=== PATIENT | male | born 1985 | race Caucasian/White ===

== ENCOUNTER 2017-04-28 06:43 | Emergency (ER) | payer MEDICAID, OTHER ==
[2017-04-28 08:21] LABS: Hematocrit 40 % (42-52); Hemoglobin 13.6 g/dl (14.0-18.0); Mean Corpuscular HGB Conc 34 g/dl (31-36); Mean Corpuscular Hemoglobin 28 pg (27-31); Mean Corpuscular Volume 84 fL (80-94); Mean Platelet Volume 8 um3 (7.4-10.4); Red Blood Count 4.82 10^6/ul (4.0-5.4); Red Cell Distribution Width 14 % (10.5-15); White Blood Count 11.2 10^3/ul (3.5-10.8)
[2017-04-28 08:35] VITALS: BP 154/85
[2017-04-28 08:40] LABS: ALT 66 U/L (7-52); AST 26 U/L (13-39); Albumin 3.9 g/dL (3.2-5.2); Alkaline Phosphatase 86 U/L (34-104); Anion Gap 5 mmol/L (2-11); BUN/Creatinine Ratio 18.9 (8-20); Blood Urea Nitrogen 20 mg/dL (6-24); CO2 Carbon Dioxide 26 mmol/L (22-32); Calcium 8.9 mg/dL (8.6-10.3); Chloride 108 mmol/L (101-111); EGFR African American 105.5 (>60); Globulin 3.2 g/dL (2-4); Glucose 160 mg/dL (70-100); Potassium 3.9 mmol/L (3.5-5.0); Sodium 139 mmol/L (133-145); Total Protein 7.1 g/dL (6.4-8.9)
[2017-04-28 08:51] LABS: Alcohol < 10 mg/dL (<10)
--- NOTE | 2017-04-29 16:12 | ED ---
Pao Dobson Edward, scribed for Shane Cowan MD on 04/28/17 at 0712 . Substance Abuse/Use - HPI Summary HPI Summary: 31 y/o male [place] c/o sudden onset heroin overdose at around 07:00 this morning. The pt turned blue, stopped breathing and had LOC. Pt was given Narcan at home which alleviated his symptoms. Pt attributes this to possible over-exhaustion and dehydration. - History Of Current Complaint Chief Complaint: EDSubstanceAbuse Stated Complaint: OVERDOSE Hx Obtained From: Patient Ingestion History: Type/Name Of Drug - Heroin Alleviating Factor(s): Other - Narcan Associated Signs And Symptoms: Intentional Ingestion, Other: - LOC, skin turned blue - Allergies/Home Medications Allergies/Adverse Reactions: Allergies Allergy/AdvReac Type Severity Reaction Status Date / Time Codeine Allergy Hives Verified 04/28/17 06:47 PMH/Surg Hx/FS Hx/Imm Hx Previously Healthy: No Endocrine/Hematology History: Denies: Hx Anticoagulant Therapy, Hx Diabetes, Hx Thyroid Disease Cardiovascular History: Reports: Hx Congestive Heart Failure, Hx Hypertension, Other Cardiovascular Problems/Disorders - CARDIOMYOPATHY Denies: Hx Pacemaker/ICD Respiratory History: Reports: Hx Asthma - [employer] Denies: Hx Chronic Obstructive Pulmonary Disease (COPD) GI History: Denies: Hx Ulcer History: Denies: Hx Dialysis, Hx Renal Disease Neurological History: Denies: Hx Dementia, Hx Seizures Psychiatric History: Denies: Hx Substance Abuse - Immunization History Date of Tetanus Vaccine: utd Date of Influenza Vaccine: none Infectious Disease History: No Infectious Disease History: Denies: Hx Clostridium Difficile, Hx Hepatitis, Hx Human Immunodeficiency Virus (HIV), Hx of Known/Suspected MRSA, Hx Shingles, Hx Tuberculosis, Hx Known/ Suspected VRE, Hx Known/Suspected VRSA, History Other Infectious Disease, Traveled Outside the [place] in Last 30 Days - Family History Known Family History: Positive: Hypertension Negative: Cardiac Disease, Diabetes - Social History Alcohol Use: None Substance Use Type: Reports: Heroin, Marijuana Substance Use Comment - Amount & Last Used: marijuana daily, heroin rarely Hx Tobacco Use: Yes Smoking Status (MU): Light Every Day Tobacco Smoker Type: Cigarettes Amount Used/How Often: 1/4 PPD Length of Time of Smoking/Using Tobacco: 8+ years Have You Smoked in the Last Year: Yes Review of Systems Constitutional: Negative Eyes: Negative ENT: Negative Cardiovascular: Negative Respiratory: Negative Gastrointestinal: Negative Genitourinary: Negative Musculoskeletal: Negative Skin: Negative Neurological: Negative Psychological: Normal All Other Systems Reviewed And Are Negative: Yes Physical Exam - Summary Physical Exam Summary: VITAL SIGNS: Reviewed. GENERAL: ~Patient is a well-developed and nourished male who is lying comfortable in the stretcher. ~Patient is not in any acute respiratory distress. HEAD AND FACE: No signs of trauma. ~No ecchymosis, hematomas or skull depressions. No sinus tenderness. EYES: PERRLA, EOMI x 2, No injected conjunctiva, no nystagmus. EARS: Hearing grossly intact. Ear canals and tympanic membranes are within normal limits. MOUTH: Oropharynx within normal limits. NECK: Supple, trachea is midline, no adenopathy, no JVD, no carotid bruit, no c- spine tenderness, neck with full ROM. CHEST: Symmetric, no tenderness at palpation LUNGS: Clear to auscultation bilaterally. No wheezing or crackles. CVS: Regular rate and rhythm, S1 and S2 present, no murmurs or gallops appreciated. ABDOMEN: Soft, non-tender. No signs of distention. No rebound no guarding, and no masses palpated. Bowel sounds are normal. EXTREMITIES: FROM in all major joints, no edema, no cyanosis or clubbing. NEURO: Alert and oriented x 3. No acute neurological deficits. Speech is normal and follows commands. SKIN: Dry and warm Triage Information Reviewed: Yes Vital Signs On Initial Exam: Initial Vitals Temp Pulse Resp BP Pulse Ox 97.3 F 69 18 154/112 98 04/28/17 06:45 04/28/17 06:45 04/28/17 06:45 04/28/17 06:45 04/28/17 06:45 Vital Signs Reviewed: Yes - [place] Coma Scale Coma Scale Total: 15 Diagnostics - Vital Signs Vital Signs Temp Pulse Resp BP Pulse Ox 04/28/17 06:45 97.3 F 69 18 154/112 98 - Laboratory Lab Results: Lab Results 04/28/17 04/28/17 Range/Units 08:03 08:03 WBC 11.2 H (3.5-10.8) 10^3/ul RBC 4.82 (4.0-5.4) 10^6/ul Hgb 13.6 L (14.0-18.0) g/dl Hct 40 L (42-52) % MCV 84 (80-94) fL MCH 28 (27-31) pg MCHC 34 (31-36) g/dl RDW 14 (10.5-15) % Plt Count 304 (150-450) 10^3/ul MPV 8 (7.4-10.4) um3 Neut % (Auto) 74.4 (38-83) % Lymph % (Auto) 18.2 L (25-47) % Emery % (Auto) 6.2 (1-9) % Eos % (Auto) 0.9 (0-6) % Baso % (Auto) 0.3 (0-2) % Absolute Neuts (auto) 8.3 H (1.5-7.7) 10^3/ul Absolute Lymphs (auto) 2.0 (1.0-4.8) 10^3/ul Absolute Monos (auto) 0.7 (0-0.8) 10^3/ul Absolute Eos (auto) 0.1 (0-0.6) 10^3/ul Absolute Basos (auto) 0 (0-0.2) 10^3/ul Absolute Nucleated RBC 0.01 10^3/ul Nucleated RBC % 0 Sodium 139 (133-145) mmol/L Potassium 3.9 (3.5-5.0) mmol/L Chloride 108 (101-111) mmol/L Carbon Dioxide 26 (22-32) mmol/L Anion Gap 5 (2-11) mmol/L BUN 20 (6-24) mg/dL Creatinine 1.06 (0.67-1.17) mg/dL Est GFR ( Amer) 105.5 (>60) Est GFR (Non-Af Amer) 82.0 (>60) BUN/Creatinine Ratio 18.9 (8-20) Glucose 160 H (70-100) mg/dL Calcium 8.9 (8.6-10.3) mg/dL Total Bilirubin 0.50 (0.2-1.0) mg/dL AST 26 (13-39) U/L ALT 66 H (7-52) U/L Alkaline Phosphatase 86 (34-104) U/L Total Protein 7.1 (6.4-8.9) g/dL Albumin 3.9 (3.2-5.2) g/dL Globulin 3.2 (2-4) g/dL Albumin/Globulin Ratio 1.2 (1-3) Serum Alcohol < 10 (<10) mg/dL Result Diagrams: 04/28/17 08:03 04/28/17 08:03 Lab Statement: Any lab studies that have been ordered have been reviewed, and results considered in the medical decision making process. - EKG 1 EKG Rhythm: Sinus Rhythm - @ 63 BPM EKG Interpretation: 07:35 - T wave inversion in I, aVL, V5-V6. Similar to Course/Dx - Course Assessment/Plan: 31 y/o male BIBA c/o sudden onset heroin overdose at around 07: 00 this morning. The pt turned blue, stopped breathing and had LOC. Pt was given Narcan at home which alleviated his symptoms. Pt attributes this to possible over-exhaustion and dehydration. 07:35 - SR @ 63 BPM. T wave inversion in I, aVL, V5-V6. Similar to 03/08/16. Test results w/o siginificant abnormalities. EKG shows NSR w/o ST elevations. Pt is A&Ox3. Pt is hemodynamically stable. Pt was observed for a couple of hours, then d/c home with f/u with PCP. Final diagnosis is overdose of heroin. I discussed all the findings and test results with the patient. Patient was instructed to return to the emergency room immediately if any of the symptoms return or worsens. Plan of care was discussed with the patient and understands and agrees. All questions were answered at patient satisfaction. There were no further complaints or concerns. Lung exam before discharge: CTA B/L. Good air exchange. No wheezing or crackles heard. CVS: S1 and S2 present. No murmurs appreciated. Patient is alert and oriented x 3. Patient is hemodynamically stable. Patient will be discharged home with follow up PCP in the next 2-3 days - Diagnoses Differential Diagnosis/HQI/PQRI: Positive: Anxiety, Drug Abuse Provider Diagnoses: Overdose of heroin Discharge - Discharge Plan Condition: Stable Disposition: HOME Patient Education Materials: Adult Overdose (ED), Narcotic Abuse (ED) Referrals: [facility] [Outside] - 3 Days (PLEASE F/U IN 2-3 DAYS) The documentation as recorded by the Pao hayden Edward accurately reflects the service I personally performed and the decisions made by me, Shane Cowan MD.
== END 2017-04-28 09:04 | disposition home or self-care (01) ==
LOC: ED 06:43
DX: T40.1X1A Poisoning by heroin, accidental (unintentional), initial encounter (principal); Y92.009 Unspecified place in unspecified non-institutional (private) residence as the place of occurrence of the external cause; I50.9 Heart failure, unspecified; I10 Essential (primary) hypertension; I42.9 Cardiomyopathy, unspecified; J45.909 Unspecified asthma, uncomplicated; Z88.5 Allergy status to narcotic agent; F12.90 Cannabis use, unspecified, uncomplicated; F17.210 Nicotine dependence, cigarettes, uncomplicated
CPT/HCPCS: 36415; 80053; 80320; 85025; 93005; 99282; G0480

== ENCOUNTER 2017-05-08 20:58 | Emergency (ER) | payer OTHER ==
[2017-05-08] MEDS ORDERED: Naloxone* 0.4 MG/ML 1 ML VIAL IM ONE (22:12)
[2017-05-08] MEDS ORDERED: Naloxone* 0.4 MG/ML 10 ML VIAL ONE ×2 (22:26→23:00)
--- NOTE | 2017-05-08 23:24 | ED ---
Rosangela Dobson Alfonso, scribed for Beatriz Lim MD on 05/08/17 at 2310 . Progress - Progress Note Progress Note: This patient was signed out from Dr. Moffett at shift change. Reevaluation at 2322: Patient is sleeping. Vital signs: HR 71, sat 97, BP 107/64 - no changes to current management No new orders at this time. Reevaluation at 0143: Pt continues to slep sat 97% BP 136/74 HR 78 Reevaluation at 0443: He is awake and talking. He reports a slight headache. Otherwise, he has no complains or needs. Will ambulate, po and discharge Re-Evaluation - Re-Evaluation First Eval Re-Evaluation Time: 22:41 Change: Improved Comment: Patient more awake after Narcan 2mg IM. He is hollering and moving in the stretcher. Course/Dx - Diagnoses Provider Diagnoses: Heroin overdose The documentation as recorded by the Rosangela hayden Alfonso accurately reflects the service I personally performed and the decisions made by me, Beatriz Lim MD.
--- NOTE | 2017-05-09 00:53 | ED ---
Rosangela Dobson Alfonso, scribed for Tiffanie Moffett MD on 05/08/17 at 2215 . Substance Abuse/Use - HPI Summary HPI Summary: This patient is a 31 year old M [facility]IBA with police 2209 to [facility] [place] a possible heroin overdose since earlier today. He reports injecting 4 units of drugs into his LUE. He was administered 0.4mg nasal narcan [employer] by [employer]. The patient rates the pain 0/10 in severity. Symptoms alleviated by nothing. Patient reports chills. Patient denies SI and HI. Tobacco abuse disorder. - History Of Current Complaint Chief Complaint: EDOverdose Stated Complaint: OVERDOSE Time Seen by Provider: 05/08/17 22:03 Hx Obtained From: Patient Ingestion History: Type/Name Of Drug - heroin, Amount Ingested - "4 units" Overdose Characteristics: IV Timing Of Abuse: Binge Use Severity Initially: Severe Severity Currently: Moderate Character: Stuporous Aggravating Factor(s): Nothing Alleviating Factor(s): Nothing Associated Signs And Symptoms: Other: - chills. Patient denies SI and HI. Sleepy , rouses to voice and tactile stimulation. Answers questions. Related Hx: Drug/Alcohol Last Used @ - today - Allergies/Home Medications Allergies/Adverse Reactions: Allergies Allergy/AdvReac Type Severity Reaction Status Date / Time Codeine Allergy Hives Verified 04/28/17 06:47 PMH/Surg Hx/FS Hx/Imm Hx Endocrine/Hematology History: Denies: Hx Anticoagulant Therapy, Hx Diabetes, Hx Thyroid Disease Cardiovascular History: Reports: Hx Congestive Heart Failure, Hx Hypertension, Other Cardiovascular Problems/Disorders - CARDIOMYOPATHY Denies: Hx Pacemaker/ICD Respiratory History: Reports: Hx Asthma Denies: Hx Chronic Obstructive Pulmonary Disease (COPD) GI History: Denies: Hx Ulcer History: Denies: Hx Dialysis, Hx Renal Disease Neurological History: Denies: Hx Dementia, Hx Seizures Psychiatric History: Denies: Hx Substance Abuse - Surgical History Surgery Procedure, Year, and Place: no surg hx - Immunization History Date of Tetanus Vaccine: utd Date of Influenza Vaccine: none Infectious Disease History: No Infectious Disease History: Denies: Hx Clostridium Difficile, Hx Hepatitis, Hx Human Immunodeficiency Virus (HIV), Hx of Known/Suspected MRSA, Hx Shingles, Hx Tuberculosis, Hx Known/ Suspected VRE, Hx Known/Suspected VRSA, History Other Infectious Disease, Traveled Outside the in Last 30 Days - Family History Known Family History: Positive: Hypertension Negative: Cardiac Disease, Diabetes - Social History Alcohol Use: None Substance Use Type: Reports: Heroin, Marijuana Substance Use Comment - Amount & Last Used: marijuana daily, heroin rarely Hx Tobacco Use: Yes Smoking Status (MU): Light Every Day Tobacco Smoker Type: Cigarettes Amount Used/How Often: 1/4 PPD Length of Time of Smoking/Using Tobacco: 8+ years Have You Smoked in the Last Year: Yes Review of Systems Positive: Chills Neurological: Other - drowsy Positive: Other - Possible heroin overdose; negative SI and HI All Other Systems Reviewed And Are Negative: Yes Physical Exam Triage Information Reviewed: Yes Vital Signs On Initial Exam: Initial Vitals Temp Pulse Resp BP Pulse Ox 98.5 F 90 18 173/82 98 05/08/17 21:12 05/08/17 21:12 05/08/17 21:12 05/08/17 21:12 05/08/17 21:12 Vital Signs Reviewed: Yes Appearance: Positive: No Pain Distress, Well-Nourished, Ill-Appearing Skin: Positive: Warm, Skin Color Reflects Adequate Perfusion, Diaphoretic Head/Face: Positive: Normal Head/Face Inspection. Negative: Cephalohematoma Eyes: Positive: EOMI, KOKO, Conjunctiva Clear, Other: - Pterygium on left eye. 4mm pupils. ENT: Positive: Hearing grossly normal, Other - Dry blood under right nare. Abraded nasal mucosa. Left nostril clear. No bleeding site identified in right nostril. Neck: Positive: Supple, Nontender Respiratory/Lung Sounds: Positive: Clear to Auscultation, Breath Sounds Present , Other - No respiratory distress Cardiovascular: Positive: RRR, Pulses are Symmetrical in both Upper and Lower Extremities, Other - Brisk capillary refill. Negative: Murmur Abdomen Description: Positive: Nontender, Soft Bowel Sounds: Positive: Present Musculoskeletal: Positive: Strength/ROM Intact Neurological: Positive: Sensory/Motor Intact, Facial Symmetry, Speech Normal Psychiatric: Positive: Other - Lethargic - [place] Coma Scale Best Eye Response: 3 - To Speech Best Motor Response: 6 - Obeys Commands Best Verbal Response: 5 - Oriented Coma Scale Total: 15 Diagnostics - Vital Signs Vital Signs Temp Pulse Resp BP Pulse Ox 05/08/17 21:12 98.5 F 90 18 173/82 98 - Laboratory Lab Statement: Any lab studies that have been ordered have been reviewed, and results considered in the medical decision making process. Re-Evaluation - Re-Evaluation First Eval Re-Evaluation Time: 22:41 Change: Improved Comment: Patient more awake after Narcan 2mg IM. He is hollering and moving in the stretcher. Course/Dx - Course Assessment/Plan: This patient is a 31 year old M BIBA with police 2209 to [facility] [place]/p a possible heroin overdose since earlier today. He reports injecting 4 units of drugs into his LUE. He was administered 0.4mg nasal narcan [employer] by [employer]. The patient rates the pain 0/10 in severity. Symptoms alleviated by nothing. Patient reports chills. Patient denies SI and HI. Tobacco abuse disorder. In the ED course the patient was given Narcan 2mg IM. Patient will be signed out a shift change to Dr. Lim. - Diagnoses Differential Diagnosis/HQI/PQRI: Positive: Alcohol Abuse, Drug Abuse Provider Diagnoses: Heroin overdose - Critical Care Time Critical Care Time: 30-74 min - 30 minutes Discharge - Discharge Plan Condition: Stable Disposition: OTHER Discharge Disposition Comment: Patient is signed out to Dr. Lim at shift change Referrals: No Primary Care Phys,NOPCP [Primary Care Provider] - The documentation as recorded by the Rosangela hayden Alfonso accurately reflects the service I personally performed and the decisions made by me, Tiffanie Moffett MD.
[2017-05-09] MEDS ORDERED: Acetaminophen TAB* 325 MG PO ONE (04:44)
[2017-05-09 05:15] VITALS: BP 152/94
== END 2017-05-09 05:15 | disposition home or self-care (01) ==
LOC: ED 20:58
DX: T40.1X1A Poisoning by heroin, accidental (unintentional), initial encounter (principal); Y92.9 Unspecified place or not applicable; F17.210 Nicotine dependence, cigarettes, uncomplicated
CPT/HCPCS: 96372; 99284; A9270-GY; J2310

== ENCOUNTER 2017-09-10 23:14 | Emergency (ER) | payer OTHER ==
--- NOTE | 2017-09-11 02:03 | ED ---
Skin Complaint - HPI Summary HPI Summary: Patient presents with "spider bite" over his right antecubital fossa. He reports this started as a small red dot 2 days ago and has more than doubled in size since. The area is swollen, red, painful and warm to touch - darkest red over AC fossa and fruit and vegetable classer red expanding beyond. Pain w/ flexing elbow - feels tight here. He told his partner earlier yesterday that his hand was cold however this is improved since. Denies any numbness tingling or weakness and no tenderness or pain in his armpit area. Admits to mild chills today however no felipe fever nausea vomiting sweats or diarrhea. 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 Believes that he contracted this infection from a bug bite at the hotel he said currently. Imms are up-to-date. No known history of MRSA. - History of Current Complaint Chief Complaint: EDRashSkinAbscess Time Seen by Provider: 09/11/17 01:07 Stated Complaint: POSS SPIDER BITE Hx Obtained From: Patient, Family/Rehabilitation Counselor - female partner Pain Intensity: 6 - Allergy/Home Medications Allergies/Adverse Reactions: Allergies Allergy/AdvReac Type Severity Reaction Status Date / Time MS Codeine [Codeine] Allergy Hives Verified 04/28/17 06:47 PMH/Surg Hx/FS Hx/Imm Hx Previously Healthy: Yes Endocrine/Hematology History: Denies: Hx Anticoagulant Therapy, Hx Diabetes, Hx Thyroid Disease Cardiovascular History: Reports: Hx Congestive Heart Failure, Hx Hypertension, Other Cardiovascular Problems/Disorders - CARDIOMYOPATHY Denies: Hx Pacemaker/ICD, Hx Valvular Heart Disease Respiratory History: Reports: Hx Asthma Denies: Hx Chronic Obstructive Pulmonary Disease (COPD) GI History: Denies: Hx Ulcer History: Denies: Hx Dialysis, Hx Renal Disease Neurological History: Denies: Hx Dementia, Hx Seizures Psychiatric History: Reports: Hx Substance Abuse - h/o heroine use - Surgical History Surgery Procedure, Year, and Place: no surg hx - Immunization History Date of Tetanus Vaccine: utd Date of Influenza Vaccine: none Infectious Disease History: No Infectious Disease History: Denies: Hx Clostridium Difficile, Hx Hepatitis, Hx Human Immunodeficiency Virus (HIV), Hx of Known/Suspected MRSA, Hx Shingles, Hx Tuberculosis, Hx Known/ Suspected VRE, Hx Known/Suspected VRSA, History Other Infectious Disease, Traveled Outside the [place] in Last 30 Days - Family History Known Family History: Positive: Hypertension Negative: Cardiac Disease, Diabetes - Social History Lives: Dormitory/Roommates - "mission housing", couch surfing Alcohol Use: None Hx Substance Use: Yes Substance Use Type: Reports: Heroin, Marijuana Substance Use Comment - Amount & Last Used: stated that last heroin was 7 months ago Hx Tobacco Use: Yes Smoking Status (MU): Light Every Day Tobacco Smoker Type: Cigarettes Amount Used/How Often: 1/4 PPD Length of Time of Smoking/Using Tobacco: 8+ years Have You Smoked in the Last Year: Yes Review of Systems Positive: Chills. Negative: Fever Eyes: Negative ENT: Negative Cardiovascular: Negative Respiratory: Negative Gastrointestinal: Negative Positive: no symptoms reported Positive: Myalgia, Decreased ROM, Edema Positive: Rash Neurological: Negative Psychological: Normal All Other Systems Reviewed And Are Negative: Yes Physical Exam Triage Information Reviewed: Yes Vital Signs On Initial Exam: Initial Vitals Temp Pulse Resp BP Pulse Ox 98.3 F 85 18 187/119 99 09/10/17 23:16 09/10/17 23:16 09/10/17 23:16 09/10/17 23:16 09/10/17 23:16 Vital Signs Reviewed: Yes Appearance: Positive: Well-Appearing, No Pain Distress - at rest - pain w/ flexing Rt elbow Skin: Positive: Warm, Skin Color Reflects Adequate Perfusion, Dry - area of indurated erythema over Rt AC fossa about 5 cm - peripheral and fruit and vegetable classer erythema expanding beyond here - no streaking Head/Face: Positive: Normal Head/Face Inspection Eyes: Positive: Normal, EOMI ENT: Positive: Hearing grossly normal Respiratory/Lung Sounds: Positive: Breath Sounds Present Cardiovascular: Positive: Normal, RRR, Pulses are Symmetrical in both Upper and Lower Extremities - no edema distally to AC fossa rash on Rt Musculoskeletal: Positive: Limited @ - Rt elbow flexion limited d/t pain/ swelling; no passive ROM pain Neurological: Positive: Normal, Sensory/Motor Intact, Alert, Oriented to Person Place, Time, CN Intact II-III Psychiatric: Positive: Normal Procedures - Procedure Summary Procedure Summary: Initially performed needle aspiration - withdrew 0.25mL purulent drainage. Converted to I&D - copious seropurulent drainage expressed from 0.25cm opening - pt reports relief and improved ROM elbow s/p procedure - sterile gauze packing placed (0.5cm) then dressed w/ gauze and EL wrap - hemodynamically stable. Pt tolerated well. - Incision and Drainage Site: Rt AC fossa Anesthesia: Local, Lidocaine Instrument(s): Scalpel - #11 Packing: Gauze Diagnostics - Vital Signs Vital Signs Temp Pulse Resp BP Pulse Ox 09/10/17 23:16 98.3 F 85 18 187/119 99 - Laboratory Result Diagrams: 09/11/17 01:59 09/11/17 01:59 Lab Statement: Any lab studies that have been ordered have been reviewed, and results considered in the medical decision making process. Re-Evaluation - Re-Evaluation First Eval Change: Improved Course/Dx - Diagnoses Provider Diagnoses: Abscess of right arm Discharge - Discharge Plan Condition: Stable Disposition: HOME Prescriptions: Clindamycin HCl [Clindamycin 150 MG CAP*] 300 mg PO TID #30 cap Ibuprofen TAB* [Motrin TAB* 800 MG] 800 mg PO Q8HR PRN #20 tab PRN Reason: Pain Patient Education Materials: Abscess (ED), Incision and Drainage (ED) Referrals: Levi Boss MD [Primary Care Provider] - Additional Instructions: Rest, elevate and apply heat compress to encourage drainage. You may change your dressing daily - simply remove gauze and apply fresh gauze. Follow-up with a medical provider tomorrow for wound check and packing removal. Call in the morning to schedule an appointment. If your dressing becomes saturated with blood in the meantime, remove your dressing, elevate your arm and apply direct pressure for 20 minutes and reassess the wound. If it continues to bleed and saturate your dressing with blood, go to an urgent care or return to the emergency department. If you develop fevers, chills, nausea, vomiting, achiness, or headache return to the emergency department. Otherwise you may take ibuprofen for pain as directed and complete your course of antibiotic. Take probiotics in between doses to prevent diarrhea. *A wound culture was taken today. You receive a phone call in 2 days if the antibiotic you are on his inappropriate and a change will be made at that time.
[2017-09-11 02:23] LABS: ABS Basophils 0 10^3/ul (0-0.2); ABS Eosinophils 0.2 10^3/ul (0-0.6); ABS Lymphocytes 2.7 10^3/ul (1.0-4.8); ABS Monocytes 0.8 10^3/ul (0-0.8); ABS Neutrophils 3.5 10^3/ul (1.5-7.7); ABS Nucleated RBC 0 10^3/ul; Eosinophil % 2.3 % (0-6); Hematocrit 40 % (42-52); Hemoglobin 13.9 g/dl (14.0-18.0); Lymphocyte % 37.7 % (25-47); Mean Corpuscular HGB Conc 35 g/dl (31-36); Mean Corpuscular Hemoglobin 29 pg (27-31); Mean Corpuscular Volume 83 fL (80-94); Mean Platelet Volume 8 um3 (7.4-10.4); Nucleated Red Blood Cells % 0; Platelet Count 298 10^3/ul (150-450); Red Blood Count 4.84 10^6/ul (4.0-5.4); Red Cell Distribution Width 13 % (10.5-15); White Blood Count 7.2 10^3/ul (3.5-10.8)
[2017-09-11] MEDS ORDERED: Ketorolac INJ* 60 MG/2 ML VIAL IM ONE (02:28)
[2017-09-11 02:32] LABS: EGFR Non-African American 116.1 (>60)
[2017-09-11] MEDS ORDERED: Clindamycin CAP* 150 MG PO ONE (02:52)
[2017-09-11 03:41] VITALS: BP 179/115
== END 2017-09-11 03:39 | disposition home or self-care (01) ==
LOC: ED 23:14
DX: L02.413 Cutaneous abscess of right upper limb (principal); R68.83 Chills (without fever); I50.9 Heart failure, unspecified; I11.0 Hypertensive heart disease with heart failure; Z88.5 Allergy status to narcotic agent; J45.909 Unspecified asthma, uncomplicated; F11.11 Opioid abuse, in remission; F12.90 Cannabis use, unspecified, uncomplicated; F17.210 Nicotine dependence, cigarettes, uncomplicated
CPT/HCPCS: 10060; 36415; 80053; 83605; 85025; 86140; 87070; 87205; 87640; 87641; 96372; 99282; A9270-GY; J1885

== ENCOUNTER 2018-01-26 20:37 | Emergency (ER) | payer OTHER ==
[2018-01-26 21:03] VITALS: BP 206/115
--- NOTE | 2018-01-26 21:40 | UC ---
General HPI - HPI Summary HPI Summary: 32 y/o male presents to the urgent care requesting medication refill Pt reports he has been without his heart medications for a few days after losing the meds in a move back to the area - History of Current Complaint Chief Complaint: UCCardiac Stated Complaint: MED REFILL Time Seen by Provider: 01/26/18 21:25 Hx Obtained From: Patient Onset/Duration: Gradual Onset, Lasting Weeks - Pt loss BP medications while moving back to [place] for the past 2 weeks, Still Present Timing: Constant Onset Severity: Mild Current Severity: Mild Pain Intensity: 0 - Allergy/Home Medications Allergies/Adverse Reactions: Allergies Allergy/AdvReac Type Severity Reaction Status Date / Time codeine Allergy Hives Verified 01/26/18 21:04 Home Medications: Home Medications oxyCODONE/Acetam5/325MG PREPAK [Percocet 5/325 TAB*] 5 mg PO TID PRN 01/26/18 [ History Confirmed 01/26/18] PMH/Surg Hx/FS Hx/Imm Hx Previously Healthy: Yes Cardiovascular History: Hypertension, 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 Other History Of: Negative For: Anticoagulant Therapy - Surgical History Surgical History: None Surgery Procedure, Year, and Place: no surg hx - Family History Known Family History: Positive: Cardiac Disease, Hypertension Negative: Diabetes - Social History Occupation: Unemployed Lives: With Family Alcohol Use: None Substance Use Type: None Substance Use Comment - Amount & Last Used: stated that last heroin was 7 months ago Smoking Status (MU): Light Every Day Tobacco Smoker Type: Cigarettes Amount Used/How Often: 1/4 PPD Length of Time of Smoking/Using Tobacco: 8+ years Have You Smoked in the Last Year: Yes - Immunization History Most Recent Influenza Vaccination: unknown Most Recent Tetanus Shot: unknown Most Recent Pneumonia Vaccination: unknown Review of Systems Constitutional: Negative Skin: Negative Eyes: Negative ENT: Negative Respiratory: Negative Cardiovascular: Negative Gastrointestinal: Negative Genitourinary: Negative Motor: Negative Neurovascular: Negative Musculoskeletal: Negative Neurological: Negative Psychological: Negative Is Patient Immunocompromised?: No All Other Systems Reviewed And Are Negative: Yes Physical Exam - Summary Physical Exam Summary: VITAL SIGNS: Reviewed. GENERAL: Patient is a well developed and nourished who is sitting comfortable in the examining table. Patient is not in any acute respiratory distress. HEAD AND FACE: No signs of trauma. No ecchymosis, hematomas or skull depressions. No sinus tenderness. EYES: PERRLA, EOMI x 2, No injected conjunctiva, no nystagmus. No photophobia. EARS: Hearing grossly intact. Ear canals and tympanic membranes are within normal limits. MOUTH: Positive no erythema, no toonsillar enlargement. Uvula in midline. NECK: Supple, trachea is midline, Positive anterior cervical lymphadenopathy, no JVD, no carotid bruit, no c-spine tenderness, neck with full ROM. No meningeal signs, no Kernig's or brudzinskis signs. CHEST: Symmetric, no tenderness at palpation LUNGS: Clear to auscultation bilaterally. No wheezing or crackles. CVS: Regular rate and rhythm, S1 and S2 present, no murmurs or gallops appreciated. ABDOMEN: Soft, non-tender. No signs of distention. No rebound no guarding, and no masses palpated. Bowel sounds are normal. EXTREMITIES: FROM in all major joints, no edema, no cyanosis or clubbing. NEURO: Alert and oriented x 3. No acute neurological deficits. Speech is normal and follows commands. SKIN: Dry and warm Triage Information Reviewed: Yes Vital Signs: Initial Vital Signs Temp 99.0 F 01/26/18 20:56 Pulse 107 01/26/18 20:56 Resp 16 01/26/18 20:56 BP 206/115 01/26/18 20:56 Pulse Ox 97 01/26/18 20:56 Course/Dx - Differential Dx - Multi-Symptom Differential Diagnoses: CVA, Other - Hypertensive emergency, Hypertension Provider Diagnoses: 1- Uncontrolled HTN Discharge - Discharge Plan Condition: Stable Disposition: HOME Prescriptions: Carvedilol TAB* [Coreg TAB*] 6.25 mg PO BID #14 tab Sacubitril/Valsartan [Entresto 49 mg-51 mg Tablet] 1 tab PO BID #14 tablet Spironolactone TAB* [Aldactone TAB 25 MG*] 25 mg PO DAILY #7 tab Patient Education Materials: Chronic Hypertension (DC), Hypertensive Crisis (ED ) Referrals: Levi Boss MD [Primary Care Provider] - 2 Days Additional Instructions: 1-Your BP is extremely elevate please if you develop dizziness, SOB, chest pain , severe headache plead go immediately to the ER for further management. 2- Refills for your BP medications were sent to pharmacy for 1 week. Please f/u w/ your PCP on Sunday to further management on your HTN - Billing Disposition and Condition Condition: STABLE Disposition: Home
[2018-01-26] MEDS ORDERED: Metoprolol Tartrate TAB* 25 MG PO ONE (21:57)
== END 2018-01-26 22:16 | disposition home or self-care (01) ==
LOC: UCEAST 20:37
DX: I11.0 Hypertensive heart disease with heart failure (principal); I50.9 Heart failure, unspecified; Z76.0 Encounter for issue of repeat prescription; F17.210 Nicotine dependence, cigarettes, uncomplicated; Z88.5 Allergy status to narcotic agent
CPT/HCPCS: 99212; G0463

== ENCOUNTER 2018-02-16 21:18 | Emergency (ER) | payer OTHER ==
--- NOTE | 2018-02-16 22:02 | ED ---
HPI Chest Pain - HPI Summary HPI Summary: Pt had an argument ~1600 onsetting CP. Pain is described as tight. He notes that he has had similar Sx before due to stress. Denies: SOB, N/V, fever. SHx: Yes; 3 cigarettes pd. FHx: HTN, CHF, CVA PMHx: CHF, HTN. Alleviating factors: NTG administered via EMS - History of Current Complaint Time Seen by Provider: 02/16/18 21:51 Hx Obtained From: Patient Onset/Duration: Started Hours Ago - 1600, Resolved Timing: Constant Chest Pain Location: Mid Sternal Chest Pain Radiates: No Character: Tightness Aggravating Factor(s): Nothing Alleviating Factor(s): NTG 123, EMS Tx Associated Signs and Symptoms: Negative: Shortness of Breath, Nausea, Vomiting - Allergy/Home Medications Allergies/Adverse Reactions: Allergies Allergy/AdvReac Type Severity Reaction Status Date / Time codeine Allergy Hives Verified 01/26/18 21:04 PMH/Surg Hx/FS Hx/Imm Hx Endocrine/Hematology History: Denies: Hx Anticoagulant Therapy, Hx Diabetes, Hx Thyroid Disease Cardiovascular History: Reports: Hx Congestive Heart Failure, Hx Hypertension - stage 2, Other Cardiovascular Problems/Disorders - CARDIOMYOPATHY Denies: Hx Pacemaker/ICD, Hx Valvular Heart Disease Respiratory History: Reports: Hx Asthma Denies: Hx Chronic Obstructive Pulmonary Disease (COPD) GI History: Denies: Hx Ulcer History: Denies: Hx Dialysis, Hx Renal Disease Neurological History: Denies: Hx Dementia, Hx Seizures Psychiatric History: Reports: Hx Substance Abuse - h/o heroine use - Surgical History Surgery Procedure, Year, and Place: no surg hx - Immunization History Date of Tetanus Vaccine: utd Date of Influenza Vaccine: none Infectious Disease History: Denies: Hx Clostridium Difficile, Hx Hepatitis, Hx Human Immunodeficiency Virus (HIV), Hx of Known/Suspected MRSA, Hx Shingles, Hx Tuberculosis, Hx Known/ Suspected VRE, Hx Known/Suspected VRSA, History Other Infectious Disease, Traveled Outside the [place] in Last 30 Days - Family History Known Family History: Positive: Cardiac Disease, Hypertension Negative: Diabetes - Social History Occupation: Employed Full-time Lives: With Family Alcohol Use: None Hx Substance Use: Yes Substance Use Type: Reports: None Substance Use Comment - Amount & Last Used: stated that last heroin was 7 months ago Hx Tobacco Use: Yes Smoking Status (MU): Light Every Day Tobacco Smoker Type: Cigarettes Amount Used/How Often: 1/4 PPD Length of Time of Smoking/Using Tobacco: 8+ years Have You Smoked in the Last Year: Yes Review of Systems Negative: Fever Positive: Chest Pain Negative: Shortness Of Breath Negative: Vomiting, Nausea All Other Systems Reviewed And Are Negative: Yes Physical Exam - Summary Physical Exam Summary: Appearance: Well-appearing, Well-nourished, lying in bed comfortably Skin: Warm, dry, no obvious rash Eyes: sclera anicteric, no conjunctival pallor ENT: mucous membranes moist, pharynx appears normal Neck: Supple, nontender Respiratory: Clear to auscultation, no signs of respiratory distress Cardiovascular: Normal S1, S2. No murmurs. Normal distal pulses in tibial and radial bilaterally. Abdomen: Soft, nontender, normal active bowel sounds present Musculoskeletal: Normal, Strength/ROM Intact Neurological: A&Ox3, awake and alert, mentation is normal, speech is fluent and appropriate Psychiatric: affect is normal, does not appear anxious or depressed Triage Information Reviewed: Yes Vital Signs Reviewed: Yes Diagnostics - Laboratory Lab Statement: Any lab studies that have been ordered have been reviewed, and results considered in the medical decision making process. - EKG 2212 Cardiac Rate: NL - 91 bpm EKG Rhythm: Sinus Rhythm EKG Interpretation: LVH w strain EKG Comparison: No Significant Change - 04/28/17 Chest Pain Course/Dx - Diagnoses Provider Diagnoses: Atypical chest pain Discharge - Sign-Out/Discharge Documenting (check all that apply): Patient Departure - Discharge Plan Condition: Good Disposition: HOME Patient Education Materials: Chest Pain (ED) Referrals: Levi Boss MD [Primary Care Provider] - Additional Instructions: Contact your brusher tender on Sunday for follow-up. Make sure to return if you get recurrence of your symptoms. - Billing Disposition and Condition Condition: GOOD Disposition: Home
[2018-02-16 22:25] VITALS: BP 201/112
== END 2018-02-16 22:24 | disposition home or self-care (01) ==
LOC: ED 21:18
DX: R07.89 Other chest pain (principal); I10 Essential (primary) hypertension; I50.9 Heart failure, unspecified; J45.909 Unspecified asthma, uncomplicated; Z88.5 Allergy status to narcotic agent; Z82.49 Family history of ischemic heart disease and other diseases of the circulatory system; Z87.891 Personal history of nicotine dependence
CPT/HCPCS: 93005; 99282

== ENCOUNTER 2018-03-14 19:17 | Emergency (ER) | payer MEDICAID, OTHER ==
--- NOTE | 2018-03-14 19:26 | ED ---
HPI Chest Pain - HPI Summary HPI Summary: This is scribe Ed Pao documenting for attending Stephon Sharp MD. 32 y/o male BIBA c/o sudden onset CP starting at around 18:00 this evening. CP at L lateral side, CP now resolved. Pt was sitting down when it started. During the episode the pt developed diffuse diaphoresis and SOB as well. Pt has had previous episodes (last several years ago - admitted to [facility]), dx with CHF. Former smoker. History of drug use. I, Dr. Sharp, personally performed the services described in this documentation as scribed in my presence and it is both accurate and complete. - History of Current Complaint Time Seen by Provider: 03/14/18 19:21 Hx Obtained From: Patient Onset/Duration: Started Hours Ago, Resolved Timing: Lasting Minutes Aggravating Factor(s): Nothing Alleviating Factor(s): Nothing Associated Signs and Symptoms: Positive: Chest Pain, Shortness of Breath, Diaphoresis - Allergy/Home Medications Allergies/Adverse Reactions: Allergies Allergy/AdvReac Type Severity Reaction Status Date / Time coconut Allergy Anaphylatic Verified 03/14/18 19:35 Shock codeine Allergy Swelling Verified 03/14/18 19:36 Of Face,Lips,& Throat fentanyl Allergy Swelling Verified 03/14/18 19:36 Of Face,Lips,& Throat peanut Allergy Anaphylatic Verified 03/14/18 19:35 Shock shellfish derived Allergy Anaphylatic Verified 03/14/18 19:35 Shock Home Medications: Home Medications Melatonin 5 mg PO BEDTIME PRN 03/14/18 [History Confirmed 03/14/18] Mirtazapine 7.5 mg PO BEDTIME 03/14/18 [History Confirmed 03/14/18] Multivitamin 1 tab PO DAILY 03/14/18 [History Confirmed 03/14/18] Nicotine PATCH 7 MG/24 HR* 7 mg TRANSDERM DAILY PRN 03/14/18 [History Confirmed 03/14/18] PMH/Surg Hx/FS Hx/Imm Hx Previously Healthy: No Endocrine/Hematology History: Denies: Hx Anticoagulant Therapy, Hx Diabetes, Hx Thyroid Disease Cardiovascular History: Reports: Hx Congestive Heart Failure, Hx Hypertension - stage 2, Other Cardiovascular Problems/Disorders - CARDIOMYOPATHY Denies: Hx Pacemaker/ICD, Hx Valvular Heart Disease Respiratory History: Reports: Hx Asthma Denies: Hx Chronic Obstructive Pulmonary Disease (COPD) GI History: Denies: Hx Ulcer History: Denies: Hx Dialysis, Hx Renal Disease Neurological History: Denies: Hx Dementia, Hx Seizures Psychiatric History: Reports: Hx Substance Abuse - h/o heroine use - Surgical History Surgery Procedure, Year, and Place: no surg hx - Immunization History Date of Tetanus Vaccine: utd Date of Influenza Vaccine: none Infectious Disease History: Denies: Hx Clostridium Difficile, Hx Hepatitis, Hx Human Immunodeficiency Virus (HIV), Hx of Known/Suspected MRSA, Hx Shingles, Hx Tuberculosis, Hx Known/ Suspected VRE, Hx Known/Suspected VRSA, History Other Infectious Disease - Family History Known Family History: Positive: Cardiac Disease, Hypertension Negative: Diabetes - Social History Alcohol Use: None Hx Substance Use: Yes Substance Use Type: Reports: None Substance Use Comment - Amount & Last Used: stated that last heroin was 7 months ago Hx Tobacco Use: Yes Smoking Status (MU): Light Every Day Tobacco Smoker Type: Cigarettes Amount Used/How Often: 1/4 PPD Length of Time of Smoking/Using Tobacco: 8+ years Have You Smoked in the Last Year: Yes Review of Systems Positive: Skin Diaphoresis Eyes: Negative ENT: Negative Positive: Chest Pain Positive: Shortness Of Breath Gastrointestinal: Negative Genitourinary: Negative Musculoskeletal: Negative Skin: Negative Neurological: Negative Psychological: Normal All Other Systems Reviewed And Are Negative: Yes Physical Exam - Summary Physical Exam Summary: Appearance: The patient is well-nourished in no acute distress and in no acute pain. Skin: The skin is warm and dry and skin color reflects adequate perfusion. HEENT: The head is normocephalic and atraumatic. The pupils are equal and reactive. The conjunctivae are clear and without drainage. Nares are patent and without drainage. Mouth reveals moist mucous membranes and the throat is without erythema and exudate. The external ears are intact. The ear canals are patent and without drainage. The tympanic membranes are intact. Neck: The neck is supple with full range of motion and non-tender. There are no carotid bruits. There is no neck vein distension. Respiratory: Chest is non-tender. Lungs are clear to auscultation and breath sounds are symmetrical and equal. Cardiovascular: Heart is regular rate and rhythm. There is no murmur or rub auscultated. There is no peripheral edema and pulses are symmetrical and equal. Abdomen: The abdomen is soft and non-tender. There are normal bowel sounds heard in all four quadrants and there is no organomegaly palpated. Musculoskeletal: There is no back tenderness noted. Extremities are non-tender with full range of motion. There is good capillary refill. There is no peripheral edema or calf tenderness elicited. Neurological: Patient is alert and oriented to person, place and time. The patient has symmetrical motor strength in all four extremities. Cranial nerves are grossly intact. Deep tendon reflexes are symmetrical and equal in all four extremities. Psychiatric: The patient has an appropriate affect and does not exhibit any anxiety or depression. Triage Information Reviewed: Yes Vital Signs Reviewed: Yes Diagnostics - Laboratory Result Diagrams: 03/14/18 19:46 03/14/18 19:46 Lab Statement: Any lab studies that have been ordered have been reviewed, and results considered in the medical decision making process. - Radiology CXR Xray Interpretation: No Acute Changes - No evidence for acute intrathoracic disease Radiology Interpretation Completed By: Radiologist - EKG 1 EKG Interpretation: 19:21 - SR @ 85 BPM. No sig change from 02/16/18 Re-Evaluation - Re-Evaluation 1 Re-Evaluation Time: 20:48 Comment: Discuss test results with pt, plan to d/c Chest Pain Course/Dx - Course Course Of Treatment: Mr. June presented to the emergency department after an acute onset of chest pain. He was given nitroglycerin in the ambulance with improvement but not resolution of his pain. Initial exam was unremarkable and his vital signs are stable. He has a history of drug use and some cardiac problems probably related to that. His initial troponin was 0.28 which is the range that his troponin usually is when he presents here. His EKG showed no acute changes. Shortly after the labs returned he called me into the room and stated that he believed the pain was gas and he just wanted to go home. He essentially refused to stay for repeat troponin and felt confident that this wasn't just gas pain and that it was completely improved at this point. I recommended he return if he has any more pain and follow-up with his PCP. He understood my concern that this could be cardiac and metabolic repeat troponin would be valuable but declined to stay. - Diagnoses Provider Diagnoses: Chest pain Discharge - Sign-Out/Discharge Documenting (check all that apply): Patient Departure - Discharge Plan Condition: Stable Disposition: HOME Patient Education Materials: Chest Pain (ED) Referrals: Levi Boss MD [Primary Care Provider] - 4 Days (PLEASE F/U IN 3-5 DAYS) Additional Instructions: RETURN TO THE ED FOR WORSENING SYMPTOMS - Billing Disposition and Condition Condition: STABLE Disposition: Home
[2018-03-14 19:52] LABS: ABS Basophils 0.1 10^3/ul (0-0.2); ABS Eosinophils 0.1 10^3/ul (0-0.6); ABS Lymphocytes 3.1 10^3/ul (1.0-4.8); ABS Monocytes 0.9 10^3/ul (0-0.8); ABS Neutrophils 5.6 10^3/ul (1.5-7.7); ABS Nucleated RBC 0 10^3/ul; Eosinophil % 1.3 % (0-6); Hematocrit 39 % (42-52); Hemoglobin 13.4 g/dl (14.0-18.0); Lymphocyte % 31.7 % (25-47); Mean Corpuscular HGB Conc 35 g/dl (31-36); Mean Corpuscular Hemoglobin 30 pg (27-31); Mean Corpuscular Volume 86 fL (80-94); Mean Platelet Volume 7.4 um3 (7.4-10.4); Nucleated Red Blood Cells % 0.1; Platelet Count 340 10^3/ul (150-450); Red Blood Count 4.52 10^6/ul (4.00-5.40); Red Cell Distribution Width 14 % (10.5-15); White Blood Count 9.9 10^3/ul (3.5-10.8)
--- NOTE | 2018-03-14 20:01 | RAD ---
Indication: Sudden onset LEFT side chest pain. Cardiomyopathy. Congestive heart failure. Asthma. History of tobacco use. Comparison: March 08, 2016 Technique: Upright AP 1947 hours Report: Clear lungs and pleural spaces. Negative for pneumothorax. The heart, pulmonary vasculature, and mediastinal contours are unremarkable. Unremarkable osseous structures and soft tissue contours. IMPRESSION: #. No evidence for acute intrathoracic disease.
[2018-03-14 20:09] LABS: EGFR Non-African American 77.3 (>60)
[2018-03-14 21:35] VITALS: BP 174/90
== END 2018-03-14 21:34 | disposition home or self-care (01) ==
LOC: ED 19:17
DX: R07.9 Chest pain, unspecified (principal); F17.210 Nicotine dependence, cigarettes, uncomplicated; I50.9 Heart failure, unspecified; Z88.5 Allergy status to narcotic agent; I10 Essential (primary) hypertension; I42.9 Cardiomyopathy, unspecified
CPT/HCPCS: 36415; 71045; 80053; 83605; 84484; 85025; 93005; 99283

== ENCOUNTER 2018-05-03 19:21 | Emergency (ER) | payer MEDICAID, OTHER ==
[2018-05-03 20:54] LABS: ABS Basophils 0.1 10^3/ul (0-0.2); ABS Eosinophils 0.1 10^3/ul (0-0.6); ABS Lymphocytes 3.3 10^3/ul (1.0-4.8); ABS Monocytes 0.8 10^3/ul (0-0.8); ABS Neutrophils 6.7 10^3/ul (1.5-7.7); ABS Nucleated RBC 0 10^3/ul; Eosinophil % 0.7 % (0-6); Hematocrit 43 % (42-52); Hemoglobin 14.5 g/dl (14.0-18.0); Lymphocyte % 29.8 % (25-47); Mean Corpuscular HGB Conc 34 g/dl (31-36); Mean Corpuscular Hemoglobin 29 pg (27-31); Mean Corpuscular Volume 86 fL (80-94); Nucleated Red Blood Cells % 0.1; Platelet Count 345 10^3/ul (150-450); Red Cell Distribution Width 14 % (10.5-15)
[2018-05-03 21:13] LABS: EGFR Non-African American 89.2 (>60)
[2018-05-03] MEDS ORDERED: Aspirin TAB* 325 MG PO ONE (22:38)
[2018-05-03] MEDS ORDERED: Morphine VIAL* 10 MG/ML 1 ML VIAL IV ONE (22:43)
[2018-05-03] MEDS ORDERED: Ondansetron INJ* 2 MG/ML VIAL IV ONE (22:43)
[2018-05-03] MEDS ORDERED: Aspirin 81 mg CHEW TAB* 81 MG TAB.CHEW ONE (23:27)
[2018-05-03] MEDS ORDERED: Morphine INJ* 4 MG/ML 1 ML SYRINGE (NEW SYRINGE VERSION) ONE (23:27)
--- NOTE | 2018-05-04 00:56 | ED ---
HPI Chest Pain - HPI Summary HPI Summary: Patient complains of left side chest pain 2 hours. CP described as constant, tightness, worst 7/10. Does not radiate. History of same. Denies SOB, fever, cough, sore throat, CP abdominal pain, N/V/D, change in urine, change in BM. Medical history is CHF [place] HTN, amyloidosis. Positive smoker. Mother had history of CVA at age 30. Pain currently a 2/10. - History of Current Complaint Chief Complaint: EDChestPainROMI Time Seen by Provider: 05/03/18 22:15 Hx Obtained From: Patient Onset/Duration: Started Hours Ago Timing: Constant Initial Severity: Mild Current Severity: Mild Pain Intensity: 2 Pain Scale Used: 0-10 Numeric Chest Pain Location: Discrete at:, Left Anterior Chest Pain Radiates: No Character: Tightness Aggravating Factor(s): Nothing Alleviating Factor(s): Nothing Associated Signs and Symptoms: Positive: Chest Pain - Allergy/Home Medications Allergies/Adverse Reactions: Allergies Allergy/AdvReac Type Severity Reaction Status Date / Time coconut Allergy Anaphylatic Verified 05/03/18 19:39 Shock codeine Allergy Swelling Verified 05/03/18 19:39 Of Face,Lips,& Throat fentanyl Allergy Swelling Verified 05/03/18 19:39 Of Face,Lips,& Throat peanut Allergy Anaphylatic Verified 05/03/18 19:39 Shock shellfish derived Allergy Anaphylatic Verified 05/03/18 19:39 Shock Home Medications: Home Medications FLUoxetine CAP* [PROzac CAP*] 10 mg PO DAILY 05/03/18 [History Confirmed ] PMH/Surg Hx/FS Hx/Imm Hx Endocrine/Hematology History: Denies: Hx Anticoagulant Therapy, Hx Diabetes, Hx Thyroid Disease Cardiovascular History: Reports: Hx Congestive Heart Failure, Hx Hypertension - stage 2, Other Cardiovascular Problems/Disorders - CARDIOMYOPATHY Denies: Hx Pacemaker/ICD, Hx Valvular Heart Disease Respiratory History: Reports: Hx Asthma Denies: Hx Chronic Obstructive Pulmonary Disease (COPD) GI History: Denies: Hx Ulcer History: Denies: Hx Dialysis, Hx Renal Disease Neurological History: Denies: Hx Dementia, Hx Seizures Psychiatric History: Reports: Hx Substance Abuse - h/o heroine use - Surgical History Surgery Procedure, Year, and Place: no surg hx - Immunization History Date of Tetanus Vaccine: utd Date of Influenza Vaccine: none Infectious Disease History: No Infectious Disease History: Denies: Hx Clostridium Difficile, Hx Hepatitis, Hx Human Immunodeficiency Virus (HIV), Hx of Known/Suspected MRSA, Hx Shingles, Hx Tuberculosis, Hx Known/ Suspected VRE, Hx Known/Suspected VRSA, History Other Infectious Disease, Traveled Outside the [place] in Last 30 Days - Family History Known Family History: Positive: Cardiac Disease, Hypertension Negative: Diabetes - Social History Alcohol Use: None Hx Substance Use: Yes Substance Use Type: Reports: None Substance Use Comment - Amount & Last Used: stated that last heroin was 7 months ago Hx Tobacco Use: Yes Smoking Status (MU): Light Every Day Tobacco Smoker Type: Cigarettes Amount Used/How Often: 1/4 PPD Length of Time of Smoking/Using Tobacco: 8+ years Have You Smoked in the Last Year: Yes Review of Systems Constitutional: Negative Eyes: Negative ENT: Negative Positive: Chest Pain Respiratory: Negative Gastrointestinal: Negative Genitourinary: Negative Musculoskeletal: Negative Skin: Negative Neurological: Negative Psychological: Normal All Other Systems Reviewed And Are Negative: Yes Physical Exam - Summary Physical Exam Summary: Pain nonreproducible. No evidence of rails or peripheral edema. Triage Information Reviewed: Yes Vital Signs On Initial Exam: Initial Vitals Temp Pulse Resp BP Pulse Ox 99.3 F 69 16 152/90 96 05/03/18 19:36 05/03/18 19:36 05/03/18 19:36 05/03/18 19:36 05/03/18 19:36 Vital Signs Reviewed: Yes Appearance: Positive: Well-Appearing Skin: Positive: Warm Head/Face: Positive: Normal Head/Face Inspection Eyes: Positive: Normal Neck: Positive: Supple Respiratory/Lung Sounds: Positive: Clear to Auscultation Cardiovascular: Positive: Normal Abdomen Description: Positive: Nontender Musculoskeletal: Positive: Normal Neurological: Positive: Normal Psychiatric: Positive: Normal AVPU Assessment: Alert - Enio Coma Scale Best Eye Response: 4 - Spontaneous Best Motor Response: 6 - Obeys Commands Best Verbal Response: 5 - Oriented Coma Scale Total: 15 Diagnostics - Vital Signs Vital Signs Temp Pulse Resp BP Pulse Ox 05/03/18 23:30 18 05/03/18 22:13 57 13 157/101 97 05/03/18 22:10 63 16 158/108 95 05/03/18 21:38 98.2 F 61 16 156/84 98 05/03/18 19:36 99.3 F 69 16 152/90 96 - Laboratory Lab Results: Lab Results 05/03/18 05/03/18 05/03/18 Range/Units 20:18 20:18 20:18 WBC 11.0 H (3.5-10.8) 10^3/ul RBC 5.00 (4.00-5.40) 10^6/ul Hgb 14.5 (14.0-18.0) g/dl Hct 43 (42-52) % MCV 86 (80-94) fL MCH 29 (27-31) pg MCHC 34 (31-36) g/dl RDW 14 (10.5-15) % Plt Count 345 (150-450) 10^3/ul MPV 8.0 (7.4-10.4) um3 Neut % (Auto) 61.5 (38-83) % Lymph % (Auto) 29.8 (25-47) % [place] % (Auto) 6.9 (0-7) % Eos % (Auto) 0.7 (0-6) % Baso % (Auto) 1.1 (0-2) % Absolute Neuts (auto) 6.7 (1.5-7.7) 10^3/ul Absolute Lymphs (auto) 3.3 (1.0-4.8) 10^3/ul Absolute Monos (auto) 0.8 (0-0.8) 10^3/ul Absolute Eos (auto) 0.1 (0-0.6) 10^3/ul Absolute Basos (auto) 0.1 (0-0.2) 10^3/ul Absolute Nucleated RBC 0 10^3/ul Nucleated RBC % 0.1 Sodium 138 (135-145) mmol/L Potassium 4.0 (3.5-5.0) mmol/L Chloride 105 (101-111) mmol/L Carbon Dioxide 25 (22-32) mmol/L Anion Gap 8 (2-11) mmol/L BUN 15 (6-24) mg/dL Creatinine 0.98 (0.67-1.17) mg/dL Est GFR ( Amer) 107.9 (>60) Est GFR (Non-Af Amer) 89.2 (>60) BUN/Creatinine Ratio 15.3 (8-20) Glucose 109 H (70-100) mg/dL Lactic Acid 1.5 (0.5-2.0) mmol/L Calcium 9.3 (8.6-10.3) mg/dL Total Bilirubin 0.30 (0.2-1.0) mg/dL AST 16 (13-39) U/L ALT 21 (7-52) U/L Alkaline Phosphatase 78 (34-104) U/L Troponin I 0.02 (<0.04) ng/mL Total Protein 6.8 (6.4-8.9) g/dL Albumin 4.2 (3.2-5.2) g/dL Globulin 2.6 (2-4) g/dL Albumin/Globulin Ratio 1.6 (1-3) 05/03/18 Range/Units 23:17 WBC (3.5-10.8) 10^3/ul RBC (4.00-5.40) 10^6/ul Hgb (14.0-18.0) g/dl Hct (42-52) % MCV (80-94) fL MCH (27-31) pg MCHC (31-36) g/dl RDW (10.5-15) % Plt Count (150-450) 10^3/ul MPV (7.4-10.4) um3 Neut % (Auto) (38-83) % Lymph % (Auto) (25-47) % [place] % (Auto) (0-7) % Eos % (Auto) (0-6) % Baso % (Auto) (0-2) % Absolute Neuts (auto) (1.5-7.7) 10^3/ul Absolute Lymphs (auto) (1.0-4.8) 10^3/ul Absolute Monos (auto) (0-0.8) 10^3/ul Absolute Eos (auto) (0-0.6) 10^3/ul Absolute Basos (auto) (0-0.2) 10^3/ul Absolute Nucleated RBC 10^3/ul Nucleated RBC % Sodium (135-145) mmol/L Potassium (3.5-5.0) mmol/L Chloride (101-111) mmol/L Carbon Dioxide (22-32) mmol/L Anion Gap (2-11) mmol/L BUN (6-24) mg/dL Creatinine (0.67-1.17) mg/dL Est GFR ( Amer) (>60) Est GFR (Non-Af Amer) (>60) BUN/Creatinine Ratio (8-20) Glucose (70-100) mg/dL Lactic Acid (0.5-2.0) mmol/L Calcium (8.6-10.3) mg/dL Total Bilirubin (0.2-1.0) mg/dL AST (13-39) U/L ALT (7-52) U/L Alkaline Phosphatase (34-104) U/L Troponin I 0.03 (<0.04) ng/mL Total Protein (6.4-8.9) g/dL Albumin (3.2-5.2) g/dL Globulin (2-4) g/dL Albumin/Globulin Ratio (1-3) Result Diagrams: 05/03/18 20:18 05/03/18 20:18 Lab Statement: Any lab studies that have been ordered have been reviewed, and results considered in the medical decision making process. Chest Pain Course/Dx - Course Course Of Treatment: Patient complains of left side chest pain 2 hours. CP described as constant, tightness, worst 7/10. Does not radiate. History of same. Denies SOB, fever, cough, sore throat, CP abdominal pain, N/V/D, change in urine, change in BM. Medical history is CHF [place] HTN, amyloidosis. Positive smoker. Mother had history of CVA at age 30. Pain currently a 2/10. Physical exam:Pain nonreproducible. No evidence of rails or peripheral edema. Vital signs within normal limits and stable. Chest x-ray negative. Labs unremarkable. EKG unremarkable. Patient pain resolved with morphine. Discussed patient with Dr. Parekh who recommended discharge and follow up with cardiology. - Diagnoses Provider Diagnoses: Atypical chest pain Discharge - Sign-Out/Discharge Documenting (check all that apply): Patient Departure - Discharge Plan Condition: Stable Disposition: HOME Patient Education Materials: Chest Pain (ED) Referrals: Levi Boss MD [Primary Care Provider] - Additional Instructions: Follow up with cardiology. Return to the ED for any new or worsening symptoms - Billing Disposition and Condition Condition: STABLE Disposition: Home
[2018-05-04] MEDS ORDERED: Morphine VIAL* 10 MG/ML 1 ML VIAL IV ONE (01:03)
[2018-05-04 01:21] VITALS: BP 155/91
--- NOTE | 2018-05-04 07:55 | RAD ---
HISTORY: chest pain COMPARISONS: March 14, 2018 VIEWS: 4: Frontal dual-energy and lateral views of the chest. FINDINGS: CARDIOMEDIASTINAL SILHOUETTE: The cardiomediastinal silhouette is normal. DASH: The dash are normal. PLEURA: The costophrenic angles are sharp. No pleural abnormalities are noted. LUNG PARENCHYMA: The lungs are clear. ABDOMEN: The upper abdomen is clear. There is no subphrenic gas. BONES AND SOFT TISSUES: No bone or soft tissue abnormalities are noted. OTHER: None. IMPRESSION: NO ACTIVE CARDIOPULMONARY DISEASE. R1
== END 2018-05-04 01:17 | disposition home or self-care (01) ==
LOC: ED 19:21
DX: R07.89 Other chest pain (principal); I10 Essential (primary) hypertension; F17.210 Nicotine dependence, cigarettes, uncomplicated
CPT/HCPCS: 36415; 71046; 80053; 83605; 84484; 85025; 93005; 96374; 96375; 99283; A9270-GY; J2270; J2405

== ENCOUNTER → 2018-08-25 11:24 | Emergency (ER) | payer OTHER ==
[~2018-08-25 11:24] MED LIST: Nitroglycerin TAB 0.4 MG* 0.4 MG TAB SL ONE
--- NOTE | 2018-08-25 11:49 | ED ---
HPI Cardiac - HPI Summary HPI Summary: Patient here with chest pain over the past hour and a half. He reports this is on the left side of his chest and radiates down to his left arm - sharp pain. Associated symptoms of dizziness and clamminess. Denies nausea, vomiting, headache, visual change. Received 325mg ASA on ambulance ride over - no relief. He was lying in bed trying to fall back asleep when he noticed the pain. He has a history of amyloidosis with poor cardiac function and h/o IV drug use w/ OD - last used 7 months ago. Last TT echocardiogram (which provider admits was limited and bedside) performed here at the [facility] on 07/03/2015 reveals EF of 10-15% globally w/ dilated Lt ventricle. Note reveals pt reported HTN since age 17 y.o. He had relief with nitro and lasix at that visit as his BNP was 1924, Trop 0.14. He was seen by Dr. Yonis ordaz and was transferred to [facility] for cardiomyopathy of unknown origin. There he was diagnosed with amyloidosis. He's been following with Levi Boss, boxing instructor in [place]. He saw her this week and she recently prescribed digoxin 125 g. He's taken this for the past 3 days "to help his heart work better" - denies testing leading up to this although he has been scheduled for follow-up cardiac testing and missed these appointments. He reports they rescheduled an echocardiogram for this week. Currently, these are his routine meds: Entresto 49-51 carvedilol 6.25 spironolactone 25 NEW - digoxin 125mcg x 3 days now Denies recent injury or exertion, increased salt intake and no edema of LE's nor SOB. - History of Current Complaint Chief Complaint: EDChestPainROMI Stated Complaint: CHEST PAIN Time Seen by Provider: 08/25/18 11:25 Hx Obtained From: Patient Pain Intensity: 5 - Allergy/Home Medications Allergies/Adverse Reactions: Allergies Allergy/AdvReac Type Severity Reaction Status Date / Time coconut Allergy Anaphylatic Verified 08/25/18 11:26 Shock codeine Allergy Swelling Verified 08/25/18 11:26 Of Face,Lips,& Throat fentanyl Allergy Swelling Verified 08/25/18 11:26 Of Face,Lips,& Throat peanut Allergy Anaphylatic Verified 08/25/18 11:26 Shock shellfish derived Allergy Anaphylatic Verified 08/25/18 11:26 Shock Home Medications: Home Medications Digoxin TAB* [Lanoxin TAB*] 0.125 mg PO DAILY 08/25/18 [History Confirmed ] PMH/Surg Hx/FS Hx/Imm Hx Previously Healthy: Yes Endocrine/Hematology History: Reports: Autoimmune Disease - amyloidosis Denies: Hx Anticoagulant Therapy, Hx Diabetes, Hx Thyroid Disease Cardiovascular History: Reports: Hx Cardiomegaly, Hx Congestive Heart Failure, Hx Hypertension - stage 2, Other Cardiovascular Problems/Disorders - CARDIOMYOPATHY (amyloidosis) Denies: Hx Pacemaker/ICD, Hx Valvular Heart Disease Respiratory History: Reports: Hx Asthma Denies: Hx Chronic Obstructive Pulmonary Disease (COPD) GI History: Reports: Other GI Disorders - Hepatitis C Denies: Hx Ulcer History: Denies: Hx Dialysis, Hx Renal Disease Neurological History: Denies: Hx Dementia, Hx Seizures Psychiatric History: Reports: Hx Substance Abuse - h/o heroine use - Surgical History Surgery Procedure, Year, and Place: no surg hx - Immunization History Date of Tetanus Vaccine: utd Date of Influenza Vaccine: none Infectious Disease History: Yes Infectious Disease History: Denies: Hx Clostridium Difficile, Hx Hepatitis, Hx Human Immunodeficiency Virus (HIV), Hx of Known/Suspected MRSA, Hx Shingles, Hx Tuberculosis, Hx Known/ Suspected VRE, Hx Known/Suspected VRSA, History Other Infectious Disease, Traveled Outside the [place] in Last 30 Days - Family History Known Family History: Positive: Cardiac Disease, Hypertension Negative: Diabetes - Social History Occupation: Unemployed Lives: Dormitory/[facility]mates - [facility] Alcohol Use: None Hx Substance Use: Yes Substance Use Type: Reports: None Substance Use Comment - Amount & Last Used: stated that last heroin was 7 months ago Hx Tobacco Use: Yes Smoking Status (MU): Light Every Day Tobacco Smoker Type: Cigarettes Amount Used/How Often: 1/4 PPD Length of Time of Smoking/Using Tobacco: 8+ years Have You Smoked in the Last Year: Yes Review of Systems Constitutional: Negative Eyes: Negative ENT: Negative Positive: Chest Pain Gastrointestinal: Negative Positive: no symptoms reported Musculoskeletal: Negative Skin: Negative Neurological: Negative Psychological: Normal All Other Systems Reviewed And Are Negative: Yes Physical Exam Triage Information Reviewed: Yes Vital Signs On Initial Exam: Initial Vitals Temp Pulse Resp BP Pulse Ox 99.1 F 59 16 172/118 97 08/25/18 11:25 08/25/18 11:25 08/25/18 11:25 08/25/18 11:25 08/25/18 11:25 Vital Signs Reviewed: Yes Appearance: Positive: Well-Appearing, Well-Nourished, Pain Distress - mild Skin: Positive: Warm, Skin Color Reflects Adequate Perfusion, Dry Head/Face: Positive: Normal Head/Face Inspection Eyes: Positive: Normal, EOMI, KOKO, Conjunctiva Clear ENT: Positive: Normal ENT inspection, Hearing grossly normal, Pharynx normal - mucosa moist Neck: Positive: Supple Respiratory/Lung Sounds: Positive: Breath Sounds Present Cardiovascular: Positive: Normal, S1, S2. Negative: Murmur, Rub, Leg Edema Left , Leg Edema Right Abdomen Description: Positive: Nontender, Soft Bowel Sounds: Positive: Present Musculoskeletal: Positive: Strength/ROM Intact - somewhat limited exam as he's in handcuffs Neurological: Positive: Normal, Sensory/Motor Intact, Alert, Oriented to Person Place, Time, CN Intact II-III Psychiatric: Positive: Normal - Enio Coma Scale Best Eye Response: 4 - Spontaneous Best Motor Response: 6 - Obeys Commands Best Verbal Response: 5 - Oriented Coma Scale Total: 15 Diagnostics - Vital Signs Vital Signs Temp Pulse Resp BP Pulse Ox 08/25/18 11:25 99.1 F 59 16 172/118 97 - Laboratory Result Diagrams: 08/25/18 11:56 08/25/18 11:56 Lab Statement: Any lab studies that have been ordered have been reviewed, and results considered in the medical decision making process. Re-Evaluation - Re-Evaluation First Eval Change: Improved - CP and BP improved from 5/10 to 3/10 w/ nitro Disposition - Course Course Of Treatment: Incarcerated pt w/ HTN, amyloidosis and EF 10-15% brought in by public records officer for Left sided chest pain this morning (1.5 hrs prior to arrival). Started digoxin 3 days ago through boxing instructor, Rema Danielle in [place]. Admits he's missed multiple appointments for cardiac testing. H/o IVDA but reports he hasn't used in 7 months. Discussed w/ Dr. Roth. ECG: sinus bradycardia, 56 bpm, no ST elevations. CXR: cardiomegaly, no acute cardiopulm dz. Labs: 1st trop and CKMB WNL; BNP 100; Dig 0.5. AST/ ALT elevated w/ known h/o Hep C. Discussed w/ Dr. Kurtz, hospitalist. Will order echocardiogram. UPDATE: echocardigram is not available at this time. Dr. Kurtz and myself spoke w/ Dr. Somers, boxing instructor, who recommends transfer d /t his high risk cardiac condition. He will come to ED consult as soon as he's free to do so. First choice for transfer is [facility] as he receives care through the [employer] system and they are familair w/ his case. Unfortunately, d/ t his [facility], he is unable to leave the [facility] at this time. Will call [facility] for transfer request there. UPDATE: [facility] auto accepts to ED via Dr. Pascual. Pt's BP increased to 160/102 and CP returned - ordered additional 0.4 SL nitro - additional nitro ordered PRN for transport as he's having good results with this. 2nd trop drawn before d/c - results pending. Dr. Somers to see pt - continues to agree w/ his original opinion for transfer - he performed a bedside echo and reports poor LV function. Pt admits prior to transfer that he was referred to oncology to consult for tx of amyloidosis. Has not been seen there yet. Has been in penitentiary for many months and due for release in September. Unsure of why he has not been making cardiology appts? Pt transferred in stable condition. - Diagnoses Provider Diagnoses: Left sided chest pain, Amyloidosis, CHF (congestive heart failure), Hypertension Discharge - Sign-Out/Discharge Documenting (check all that apply): Patient Departure - Discharge Plan Condition: Improved Disposition: TRANS HIGHER LVL OF CARE FAC - Billing Disposition and Condition Condition: IMPROVED Disposition: Trans Higher Lvl of Care Fac
[2018-08-25 12:04] LABS: ABS Basophils 0 10^3/ul (0-0.2); ABS Eosinophils 0.1 10^3/ul (0-0.6); ABS Lymphocytes 2.8 10^3/ul (1.0-4.8); ABS Monocytes 0.7 10^3/ul (0-0.8); ABS Neutrophils 3.6 10^3/ul (1.5-7.7); ABS Nucleated RBC 0 10^3/ul; Hematocrit 40 % (42-52); Hemoglobin 13.6 g/dl (14.0-18.0); Lymphocyte % 38.9 %; Mean Corpuscular HGB Conc 34 g/dl (31-36); Mean Corpuscular Hemoglobin 29 pg (27-31); Mean Corpuscular Volume 87 fL (80-94); Mean Platelet Volume 7.9 fL (7.4-10.4); Nucleated Red Blood Cells % 0; Platelet Count 251 10^3/ul (150-450); Red Blood Count 4.63 10^6/ul (4.00-5.40); Red Cell Distribution Width 14 % (10.5-15); White Blood Count 7.2 10^3/ul (3.5-10.8)
--- OUTSIDE RECORDS SUMMARY | 2018-08-25 12:09 | XMS REPORT | Continuity of Care Document ---
:1985 External Reference #:[id number] Author Name Levi Boss MD Address [address] [place] [address] Care Team Providers Name Role Phone Imer Bronson MD Care Team Information Media Sales Consultant Unavailable Imer Bronson MD Primary Care Physician Unavailable Payers Type Date Identification Numbers Payment Provider Subscriber Expires: 2018 Policy Number: [id number] [place] [employer] Eleazar June PayID: [id number] [address] [place] [address] Policy Number: [id number] Medicaid Eleazar June PayID: [id number] [address] [place] [address] Advance Directives Description No Information Available Problems Date Description Provider Status Onset: 08/29/2016 Benign essential hypertension Active Onset: 11/01/2017 Obstructive sleep apnea syndrome Nia Ortiz PA Active Onset: 11/01/2017 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 Onset: 11/01/2017 Amyloidosis Nia Ortiz PA Active Onset: 11/01/2017 Other cardiomyopathies Nia Ortiz PA Active Family History Date Family Member(s) Problem(s) Comments Father due to No known family () history of CAD Mother due to Heart Disease () - CVA age 29 Social History Type Date Description Comments Sex Unknown Lives With Spouse Diet Low Sodium Occupation Disabled ADL's/IADL's Independent with all ADL's Tobacco Use Start: Unknown current cigarette smoker Smoking Status Reviewed: 08/21/18 current cigarette smoker ETOH Use Denies alcohol use Allergies, Adverse Reactions, Alerts Date Description Reaction Status Severity Comments 08/29/2016 Codeine Active Medications Medication Date Status Form Strength Qnty SIG Indications Ordering Provider Digoxin Active Tablets 125mcg 30tabs 1 by I42.8 Bruno Boss MD every day Carvedilol Active Tablets 6.25mg 90tabs 1 tab by [place] mouth Wilfrido M., twice a M.D., [facility] day Entresto Active Tablets 49-51mg 90tabs 1 tab by [place] mouth Wilfrido M., twice M.D., [facility] daily Spironolactone Active Tablets 25mg 90tabs 1 by [place] mouth Wilfrido M., every M.D., [facility] day No Active Hx Unknown Medications - 017 Entresto Hx Tablets 24-26mg 60tabs 1 by [place] mouth Wilfrido M., twice a M.D., [facility] day Carvedilol Hx Tablets 3.125mg 60tabs take one [place] tablet Wilfrido M., by mouth M.D., [facility] twice a day No Active Hx Unknown Medications - 017 Carvedilol /0 Hx Tablets 12.5mg 1 by Unknown 000 mouth twice a day Vitamin B12 /0 Hx Tablets 1000mcg 1 by Unknown 000 ER mouth every day Lisinopril 0 Hx Tablets 20mg 1 by Unknown 000 mouth every day Spironolactone //0 Hx Tablets 25mg 1 by Unknown 000 mouth every day Torsemide /0 Hx Tablets 20mg 1 by Unknown 000 mouth every day prn Vitamin D /0 Hx Tablets 1000Unit 1 by Unknown 000 mouth every day Carvedilol /0 Hx Tablets 3.125mg 1 by Unknown 000 - mouth twice a 017 day Entresto /0 Hx Tablets 24-26mg 1 by Unknown 000 - mouth twice a 017 day Immunizations Description No Information Available Vital Signs Date Vital Result Comment 08/21/2018 2:07pm BP Systolic Sitting Left Arm 140 mmHg BP Diastolic Sitting Left Arm 90 mmHg Heart Rate 60 /min Respiratory Rate 16 /min Height 67 inches 5'7" Weight 213.00 lb BMI (Body Mass Index) 33.4 kg/m2 BSA (Body Surface Area) 2.08 m2 [place] body weight in kilograms 67 kg O2 % BldC Oximetry 99 % 11/01/2017 2:24pm BP Systolic Sitting Left Arm 168 mmHg BP Diastolic Sitting Left Arm 80 mmHg Heart Rate 77 /min Respiratory Rate 16 /min Height 67 inches 5'7" Weight 213.00 lb BMI (Body Mass Index) 33.4 kg/m2 BSA (Body Surface Area) 2.08 m2 [place] body weight in kilograms 67 kg 03/05/2017 2:01pm BP Systolic Sitting Left Arm 172 mmHg BP Diastolic Sitting Left Arm 132 mmHg Heart Rate 56 /min Respiratory Rate 16 /min Height 67 inches 5'7" Weight 234.00 lb BMI (Body Mass Index) 36.6 kg/m2 BSA (Body Surface Area) 2.16 m2 [place] body weight in kilograms 67 kg 11/15/2016 10:50am BP Systolic Sitting Left Arm 220 mmHg 212/126 BP Diastolic Sitting Left Arm 140 mmHg 212/126 Heart Rate 88 /min Respiratory Rate 20 /min Height 67 inches 5'7" Weight 239.00 lb BMI (Body Mass Index) 37.4 kg/m2 BSA (Body Surface Area) 2.18 m2 08/30/2016 10:02am BP Systolic Sitting Right Arm 202 mmHg machine BP Diastolic Sitting Right Arm 144 mmHg machine Heart Rate 82 /min Respiratory Rate 16 /min Height 67 inches 5'7" Weight 242.00 lb BMI (Body Mass Index) 37.9 kg/m2 BSA (Body Surface Area) 2.19 m2 [place] body weight in kilograms 67 kg Results Test Date Facility Test Result H/L Range Note Laboratory test 08/21/2018 [facility] NT-Probnp <pending> finding [address] [place] [address] [phone] CBC Auto Diff 05/03/2018 [facility] White Blood 11.0 10^3/uL High 3.5-10.8 [phone] Count Red Blood Count 5.00 10^6/uL N 4.00-5.40 Hemoglobin 14.5 g/dL N 14.0-18.0 Hematocrit 43 % N 42-52 Mean Corpuscular Volume 86 fL N 80-94 Mean Corpuscular Hemoglobin 29 pg N 27-31 Mean Corpuscular HGB Conc 34 g/dL N 31-36 Red Cell Distribution Width 14 % N 10.5-15 Platelet Count 345 10^3/uL N 150-450 Mean Platelet Volume 8.0 um3 N 7.4-10.4 Abs Neutrophils 6.7 10^3/uL N 1.5-7.7 Abs Lymphocytes 3.3 10^3/uL N 1.0-4.8 Abs Monocytes 0.8 10^3/uL N 0-0.8 Abs Eosinophils 0.1 10^3/uL N 0-0.6 Abs Basophils 0.1 10^3/uL N 0-0.2 Abs Nucleated RBC 0 10^3/uL Granulocyte % 61.5 % N 38-83 Lymphocyte % 29.8 % N 25-47 Monocyte % 6.9 % N 0-7 Eosinophil % 0.7 % N 0-6 Basophil % 1.1 % N 0-2 Nucleated Red Blood Cells % 0.1 Laboratory test 05/03/2018 [facility] Troponin I 0.03 ng/mL <0.04 finding [phone] Laboratory test 05/03/2018 [facility] Troponin I 0.02 ng/mL <0.04 finding [phone] Laboratory test 05/03/2018 [facility] Lactic Acid 1.5 mmol/L N 0.5-2.0 1 finding [phone] Comp Metabolic 05/03/2018 [facility] Sodium 138 mmol/ L N 135-145 Panel [phone] Potassium 4.0 mmol/L N 3.5-5.0 Chloride 105 mmol/L N 101-111 Co2 Carbon Dioxide 25 mmol/L N 22-32 Anion Gap 8 mmol/L N 2-11 Glucose 109 mg/dL High 70-100 Blood Urea Nitrogen 15 mg/dL N 6-24 Creatinine 0.98 mg/dL N 0.67-1.17 BUN/Creatinine Ratio 15.3 N 8-20 Calcium 9.3 mg/dL N 8.6-10.3 Total Protein 6.8 g/dL N 6.4-8.9 Albumin 4.2 g/dL N 3.2-5.2 Globulin 2.6 g/dL N 2-4 Albumin/Globulin Ratio 1.6 N 1-3 Total Bilirubin 0.30 mg/dL N 0.2-1.0 Alkaline Phosphatase 78 U/L N 34-104 Alt 21 U/L N 7-52 Ast 16 U/L N 13-39 Egfr Non- 89.2 >60 Egfr 107.9 >60 2 CBC Auto Diff 03/14/2018 [facility] White Blood 9.9 10^3/uL N 3.5-10.8 [phone] Count Red Blood Count 4.52 10^6/uL N 4.00-5.40 Hemoglobin 13.4 g/dL Low 14.0-18.0 Hematocrit 39 % Low 42-52 Mean Corpuscular Volume 86 fL N 80-94 Mean Corpuscular Hemoglobin 30 pg N 27-31 Mean Corpuscular HGB Conc 35 g/dL N 31-36 Red Cell Distribution Width 14 % N 10.5-15 Platelet Count 340 10^3/uL N 150-450 Mean Platelet Volume 7.4 um3 N 7.4-10.4 Abs Neutrophils 5.6 10^3/uL N 1.5-7.7 Abs Lymphocytes 3.1 10^3/uL N 1.0-4.8 Abs Monocytes 0.9 10^3/uL High 0-0.8 Abs Eosinophils 0.1 10^3/uL N 0-0.6 Abs Basophils 0.1 10^3/uL N 0-0.2 Abs Nucleated RBC 0 10^3/uL Granulocyte % 56.5 % N 38-83 Lymphocyte % 31.7 % N 25-47 Monocyte % 9.4 % High 0-7 Eosinophil % 1.3 % N 0-6 Basophil % 1.1 % N 0-2 Nucleated Red Blood Cells % 0.1 Laboratory test 03/14/2018 [facility] Lactic Acid 1.3 mmol/L N 0.5-2.0 3 finding [phone] Comp Metabolic 03/14/2018 [facility] Sodium 141 mmol/ L N 135-145 Panel [phone] Chloride 107 mmol/L N 101-111 Co2 Carbon Dioxide 30 mmol/L N 22-32 Glucose 94 mg/dL N 70-100 Blood Urea Nitrogen 25 mg/dL High 6-24 Creatinine 1.11 mg/dL N 0.67-1.17 BUN/Creatinine Ratio 22.5 High 8-20 Calcium 9.1 mg/dL N 8.6-10.3 Total Protein 6.4 g/dL N 6.4-8.9 Albumin 3.9 g/dL N 3.2-5.2 Globulin 2.5 g/dL N 2-4 Albumin/Globulin Ratio 1.6 N 1-3 Total Bilirubin 0.30 mg/dL N 0.2-1.0 Alkaline Phosphatase 74 U/L N 34-104 Alt 21 U/L N 7-52 Egfr Non- 77.3 >60 Egfr 93.5 >60 4 Potassium 5.1 mmol/L High 3.5-5.0 5 Anion Gap 4 mmol/L N 2-11 Ast 17 U/L N 13-39 6 Laboratory test 03/14/2018 [facility] Troponin I 0.04 ng/mL High <0.04 7 finding [phone] Laboratory test 09/11/2017 [facility] Wound/Misc SEE RESULT 8 finding [phone] Culture-Gram BELOW Stain MRSA/S. aureus Ssti PCR SEE RESULT BELOW 9 Laboratory test 09/11/2017 [facility] Lactic Acid 0.7 mmol/L N 0.5-2.0 10 finding [phone] Comp Metabolic 09/11/2017 [facility] Sodium 137 mmol/ L N 133-145 Panel [phone] Potassium 3.9 mmol/L N 3.5-5.0 Chloride 103 mmol/L N 101-111 Co2 Carbon Dioxide 27 mmol/L N 22-32 Anion Gap 7 mmol/L N 2-11 Glucose 94 mg/dL N 70-100 Blood Urea Nitrogen 10 mg/dL N 6-24 Creatinine 0.78 mg/dL N 0.67-1.17 BUN/Creatinine Ratio 12.8 N 8-20 Calcium 8.8 mg/dL N 8.6-10.3 Total Protein 7.1 g/dL N 6.4-8.9 Albumin 3.8 g/dL N 3.2-5.2 Globulin 3.3 g/dL N 2-4 Albumin/Globulin Ratio 1.2 N 1-3 Total Bilirubin 0.40 mg/dL N 0.2-1.0 Alkaline Phosphatase 80 U/L N 34-104 Alt 44 U/L N 7-52 Ast 20 U/L N 13-39 Egfr Non- 116.1 >60 Egfr 149.3 >60 11 Laboratory test 09/11/2017 [facility] C Reactive 11.60 mg/L High < 5.00 12 finding [phone] Protein CBC Auto Diff 09/11/2017 [facility] White Blood 7.2 N 3.5-10.8 [phone] Count 10^3/uL Red Blood Count 4.84 10^6/uL N 4.0-5.4 Hemoglobin 13.9 g/dL Low 14.0-18.0 Hematocrit 40 % Low 42-52 Mean Corpuscular Volume 83 fL N 80-94 Mean Corpuscular Hemoglobin 29 pg N 27-31 Mean Corpuscular HGB Conc 35 g/dL N 31-36 Red Cell Distribution Width 13 % N 10.5-15 Platelet Count 298 10^3/uL N 150-450 Mean Platelet Volume 8 um3 N 7.4-10.4 Abs Neutrophils 3.5 10^3/uL N 1.5-7.7 Abs Lymphocytes 2.7 10^3/uL N 1.0-4.8 Abs Monocytes 0.8 10^3/uL N 0-0.8 Abs Eosinophils 0.2 10^3/uL N 0-0.6 Abs Basophils 0 10^3/uL N 0-0.2 Abs Nucleated RBC 0 10^3/uL Granulocyte % 48.7 % N 38-83 Lymphocyte % 37.7 % N 25-47 Monocyte % 10.7 % High 1-9 Eosinophil % 2.3 % N 0-6 Basophil % 0.6 % N 0-2 Nucleated Red Blood Cells % 0 Laboratory 11/16/2016 [facility] Immunofixation,Urine (SEE 13, test finding [address] NOTE) 14 [place] [address] [phone] Aldan/Lambda 11/16/2016 [facility] Free Aldan Lt Chains 81.30 High 1.[address] Urine mg/L 5-2 Chain-QN,[place] [address] 4.1 Urine [phone] Free Lambda Lt Chains Urine 3.51 mg/L 0.24-6.66 15 Aldan/Lambda Ratio, Urine 23.16 High 2.04-10.37 16 Protein 11/16/2016 [facility] Protein,Total,Serum 6.5 g/dL 6.0-8.5 Electro.,S [address] [place], [place] [id number] [phone] Albumin 3.3 g/dL 2.9-4.4 Stfru-6-Tiiqvtdu 0.2 g/dL 0.0-0.4 Ndqer-9-Bqslmbrn 0.6 g/dL 0.4-1.0 Beta Globulin 1.1 g/dL 0.7-1.3 Gamma Globulin 1.3 g/dL 0.4-1.8 M-Elvis Not Observed g/dL Not Observed Globulin, Total 3.2 g/dL 2.2-3.9 A/G Ratio 1.0 0.7-1.7 Please Note: (SEE NOTE) 17 P E Interpretation, Serum (SEE NOTE) 18 Immunoglobulins 11/16/2016 [facility] Immunoglobulin [phone] A/G/M, QN, Ser [address] G,Quant,Serum mg/dL [place], [place] [id number] [phone] Immunoglobulin A 198 mg/dL 90-386 Immunoglobulin M 126 mg/dL 20-172 Laboratory test 11/16/2016 [facility] Sedimentation 4 mm/hr N 0-15 [address] [place] [address] [phone] Laboratory test 08/31/2016 [facility] Thyroid Stim 2.46 N 0.30-4.[address] Hormone uIU/mL 0 [place] [address] [phone] LDL Cholesterol 08/31/2016 [facility] Cholesterol 156 mg/dL N <200 [address] [place] [address] [phone] Triglycerides 140 mg/dL N <150 22 HDL Cholesterol 35 mg/dL Low >40 23 LDL-Cholesterol 93 mg/dL N < 100 24 Laboratory test finding 08/31/2016 [facility] Magnesium 2.2 mg/dL N 1.8-2.[address] [place] [address] [phone] NT-proBNP 3246.0 pg/mL High <125 Comprehensive Metabolic 08/31/2016 [facility] Glucose 98 mg/dL N 74-[address] [place] [address] [phone] BUN 14 mg/dL N 7-18 Creatinine 1.2 mg/dL N 0.6-1.3 Glom Filtration Rate, Estimate >60 mL/min N >60 If >60 mL/min N >60 25 BUN/Creat 11.6 ratio N Sodium 141 mmol/L N 136-145 Potassium 3.8 mmol/L N 3.5-5.1 Chloride 107 mmol/L N 98-107 Carbon Dioxide 28 mmol/L N 21-32 Anion Gap 6 mEq/L Low 8-16 Calcium 8.6 mg/dL N 8.5-10.1 Total Protein 7.9 g/dL N 6.4-8.2 Albumin 3.5 g/dL N 3.4-5.0 Globulin 4.4 g/dL High 1.9-4.3 Alb/Glob 0.8 ratio N Bilirubin,Total 0.3 mg/dL N 0.2-1.0 Sgot/Ast 17 U/L N 15-37 SGPT/Alt 21 U/L N 12-78 Alkaline Phosphatase 140 U/L High 45-117 CBS W/Automated Diff 08/31/2016 [facility] White Blood 8.4 K/uL N 3.4-10.[address] [place] [address] [phone] Red Blood Count 5.56 M/uL N 4.20-5.80 Hemoglobin 15.7 gm/dL N 12.8-17.0 Hematocrit 45.8 % N 38.0-48.0 Mean Cell Volume 82.4 fl N 80.0-96.0 Mean Corpuscular HGB 28.2 pg N 27.0-33.0 Mean Corpuscular HGB Conc 34.3 g/dL N 31.7-36.0 Platelet Count 390 K/uL N 150-400 Red Cell Distri Width SD 40.1 fl N 36-51 Red Cell Distri Width %CV 13.8 % N 11.6-15.8 Mean Platelet Volume 10.3 fL N 6.6-10.6 Neut% 68.3 % N 33.0-73.0 Lymph % 22.4 % N 20.0-42.0 [place] % 8.1 % N 0.0-10.0 Eo% 1.0 % N 0.0-5.0 Bas% 0.2 % N 0.1-1.0 Neut# 5.75 K/uL N 1.8-7.0 Lymph # 1.88 K/uL N 1.0-4.0 [place] # 0.68 K/uL N 0.0-0.8 Eos # 0.08 K/uL N 0.0-0.5 Baso # 0.02 K/uL Low 0.1-0.2 1 [facility] Severe Sepsis and Septic Shock Management Bundle Measure requires all lactic acids initially measuring >2.0 mmol/L be repeated. 2 Because ethnic data is not always readily available, this report includes an eGFR for both -Americans and non- Americans. The National Kidney Disease Education Program (NKDEP) does not endorse the use of the MDRD equation for patients that are not between the ages of 18 and 70, are , have extremes of body size, muscle mass, or nutritional status, or are non- or non-. According to the National Kidney Foundation, irrespective of diagnosis, the stage of the disease is based on the level of kidney function: Stage Description GFR(mL/min/1.73 m(2)) 1 Kidney damage with normal or decreased GFR 90 2 Kidney damage with mild decrease in GFR 60-89 3 Moderate decrease in GFR 30-59 4 Severe decrease in GFR 15-29 5 Kidney failure <15 (or dialysis) 3 [facility] Severe Sepsis and Septic Shock Management Bundle Measure requires all lactic acids initially measuring >2.0 mmol/L be repeated. 4 Because ethnic data is not always readily available, this report includes an eGFR for both -Americans and non- Americans. The National Kidney Disease Education Program (NKDEP) does not endorse the use of the MDRD equation for patients that are not between the ages of 18 and 70, are , have extremes of body size, muscle mass, or nutritional status, or are non- or non-. According to the National Kidney Foundation, irrespective of diagnosis, the stage of the disease is based on the level of kidney function: Stage Description GFR(mL/min/1.73 m(2)) 1 Kidney damage with normal or decreased GFR 90 2 Kidney damage with mild decrease in GFR 60-89 3 Moderate decrease in GFR 30-59 4 Severe decrease in GFR 15-29 5 Kidney failure <15 (or dialysis) 5 Specimen Hemolyzed. Result may not be valid. Unable to report test result due to hemolysis. 6 Unable to report test result due to hemolysis. 7 Result TnIDx:0.04 Called to [id number] at: 20:13:58 by:[id number] Read back by: [id number] 8 SEE RESULT BELOW Name: ELEAZAR JUNE : [address]: Pk Allan MD Acct: [id number] Unit: [id number] AGE: 32 Location: ED Re09/10/17 SEX: M Status: DEP ER SPEC: [id number] HELEN: 09/11/[address] [facility] [address]: Pauly GROVE REQ: [id number] RECD: 09/11/17 STATUS: XENIA RAMIREZ DR: Chelsea Boss MD _ SOURCE: FAMILIA LILLY [facility]: ORDERED: Culture Stain Procedure Result Reported Site Wound/Misc Gram Stain Final 09/11/17- 0742 ML 4+ Neutrophils Possible 1+ Gram Positive Cocci Wound/Misc Culture PENDING * ML - MAIN LAB ([facility]) . END OF REPORT * ML=Testing performed at Main Lab DEPARTMENT OF PATHOLOGY, [address] [place] [address] Jordon Lin M.D. Director [facility] # [id number] 9 SEE RESULT BELOW Name: ELEAZAR JUNE : [address]: Pk Allan MD Acct: [id number] Unit: [id number] AGE: 32 Location: ED Re09/10/17 SEX: M Status: DEP ER SPEC: [id number] HELEN: 09/11/[address]: Pauly GROVE REQ: [id number] RECD: 09/11/17 STATUS: FRIDA RAMIREZ DR: Chelsea Boss MD _ SOURCE: ARM RIGHT SPDESC: ORDERED: MRSA/SA SSTI, Culture Stain COMMENTS: Submitted to [facility] via Supportie system by [id number] at 1410 on 09/12/17. Verbal STRPYO to MAVERICK RAMIRES/HIMA ATKINSON RN by [id number] at 1345 on 09/12/17. Results read back accurately. Procedure Result Reported Site MRSA/S. aureus SSTI PCR Final 09/11/17- 1017 ML Organism 1 MRSA NEGATIVE Organism 2 S.AUREUS NEGATIVE Wound/Misc Gram Stain Final 09/11/17- 0742 ML 4+ Neutrophils Possible 1+ Gram Positive Cocci Wound/Misc Culture Final 09/14/17- 0837 ML Organism 1 STREP PYOGENES (GRP A) Quantity 1+ Organism 2 NORMAL CHARLI Quantity 1+ 1. STREP PYOGENES (GRP A) M.I.C. RX --------- ------ Chloramphenicol 8 I Ampicillin <=0.06 S Penicillin <=0.03 S Cefepime <=0.25 S CONTINUED ON NEXT PAGE * ML=Testing performed at Main Lab DEPARTMENT OF PATHOLOGY, [address] [place] [address] Jordon Lin M.D. Director [facility] # [id number] Patient: ELEAZAR JUNE [id number] (Continued) Specimen: [id number] Collected: 09/11/17 Received: 09/11/17 (Continued) Procedure Result Reported Site Wound/Misc Culture Final (continued) 09/14/17- 836 1. STREP PYOGENES (GRP A) (continued) M.I.C. RX --------- ------ * Cefotaxime <=0.25 S Ceftriaxone <=0.25 S Levofloxacin 0.5 S Azithromycin >2 R Clindamycin >0.5 R Erythromycin >0.5 R Tetracycline >4 R Vancomycin 1 S * ML - MAIN LAB ([facility]) . END OF REPORT * ML=Testing performed at Main Lab DEPARTMENT OF PATHOLOGY, [address] [place] [address] Jordon Lin M.D. Director [facility] # [id number] 10 [facility] Severe Sepsis and Septic Shock Management Bundle Measure requires all lactic acids initially measuring >2.0 mmol/L be repeated. 11 Because ethnic data is not always readily available, this report includes an eGFR for both -Americans and non- Americans. The National Kidney Disease Education Program (NKDEP) does not endorse the use of the MDRD equation for patients that are not between the ages of 18 and 70, are , have extremes of body size, muscle mass, or nutritional status, or are non- or non-. According to the National Kidney Foundation, irrespective of diagnosis, the stage of the disease is based on the level of kidney function: Stage Description GFR(mL/min/1.73 m(2)) 1 Kidney damage with normal or decreased GFR 90 2 Kidney damage with mild decrease in GFR 60-89 3 Moderate decrease in GFR 30-59 4 Severe decrease in GFR 15-29 5 Kidney failure <15 (or dialysis) 12 Acute inflammation: >10.00 13 HTN URGENCY 14 An apparent normal immunofixation pattern. Performed at: [address] [id number] Corporate Communications Manager: Octavia Parra MD, Phone: [phone] 15 Results verified by repeat testing 16 Performed at: [address] [id number] Corporate Communications Manager: Shahid Kan MD, Phone: [phone] 17 Protein electrophoresis scan will follow via computer, mail, or wheelman delivery. 18 The SPE pattern appears essentially unremarkable. Evidence of monoclonal protein is not apparent. Performed at: [address] [id number] Corporate Communications Manager: Octavia Parra MD, Phone: [phone] 19 Method: Sediplast Modified Westergren 20 I50.42 21 Reference Guidelines*: Desirable: ........... < 200 mg/dL Borderline High: ..... 200-239 mg/dL High: ................ >=240 mg/dL * The National Cholesterol Education Program (NCEP) 22 Reference Guidelines*: Normal: ............. < 150 mg/dL Borderline High: .... 150-199 mg/dL High: ............... 200-499 mg/dL Very High: .......... > 500 mg/dL * Source: National Cholesterol Education Program (NCEP) 23 Reference Guidelines*: Low HDL: ..... < 40 mg/dL Normal: ..... 40-60 mg/dL Desirable: ... > 60 mg/dL *The National Cholesterol Education Program(NCEP) 24 Reference Guidelines*: Optimal:........... <100 mg/dL Near Optimal....... 100-129 mg/dL Borderline High.... 130-159 mg/dL High............... 160-189 mg/dL Very High.......... >=190 mg/dL * Source: National Cholesterol Education Program (NCEP) 25 Note: Persistent reduction for 3 months or more in an eGFR <60 mL/min/1.73 m2 defines CKD. Patients with eGFR values >/=60 mL/min/1.73 m2 may also have CKD if evidence of persistent proteinuria is present. The original MDRD equation for estimated GFR is not valid for patients less than 18 years of age. Additional information may be found at www.kdoqi.org. 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, unspecified I50.42 Chronic combined systolic and diastolic hrt fail I10 Essential (primary) hypertension G47.33 Obstructive sleep apnea (adult) (pediatric) Office Visit 03/05/2017 Cardiology Levi Boss I42.8 Other cardiomyopathies 2:00p Office 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, unspecified I50.42 Chronic combined systolic and diastolic hrt fail I10 Essential (primary) hypertension Office Visit 11/15/2016 11:00a Cardiology Office Levi Boss E85.2 Heredofamilial MD amyloidosis, unspecified I42.8 Other cardiomyopathies I16.1 Hypertensive emergency Office Visit 08/30/2016 10:00a Cardiology Office Levi Boss I50.42 Chronic combined MD systolic and diastolic hrt fail I10 Essential (primary) hypertension Plan of Treatment 08/21/2018 - Levi Boss MDI50.42 Chronic combined systolic (congestive) and diastolic (congesNew Orders:Nuclear Stress TestLavern, Ordered: Comments:Has been compliant while incarcerated for the past 4 months. Frequent resting chest pains. Will needto get repeated Echo, Lexiscan and labs. I will attempt to reschedule to dr Souza if willing to see. I will try to add digoxin to optimize CHF regimen.I42.8 Other cardiomyopathiesNew Medication: Digoxin 125 mcg - 1 by mouth every dayNew Orders:Echocardiogram, Ordered: Comments:As [id number] Essential (primary) hypertensionComments:Suboptimal but before adjusting his meds we will need to get labs as this is the first time he actually takes all his meds and we need to know his renal function and electrolyte statusAllFollow up:Referral to Dr Souza Follow up After the studies are completed.
[2018-08-25 12:11] LABS: Activated Partial Thrombo Time 32.4 seconds (26.0-36.3); INR 0.96 (0.77-1.02)
[2018-08-25 12:20] LABS: Albumin/Globulin Ratio 1.3 (1-3); BUN/Creatinine Ratio 20.8 (8-20); Calcium 9.5 mg/dL (8.6-10.3); EGFR Non-African American 90.8 (>60); Globulin 3.2 g/dL (2-4); Magnesium 1.9 mg/dL (1.9-2.7); Potassium 4.6 mmol/L (3.5-5.0); Total Bilirubin 0.7 mg/dL (0.2-1.0); Total Protein 7.2 g/dL (6.4-8.9)
[2018-08-25 12:42] LABS: Digoxin 0.5 ng/ml (0.8-2.0)
[2018-08-25 15:19] VITALS: BP 148/97
--- NOTE | 2018-08-25 21:06 | CARD ---
LIMITED BESIDE ECHOCARDIOGRAM NOTE: DATE OF STUDY: 08/25/18 - EMERGENCY DEPT PROCEDURE: Very limited bedside echocardiogram. DESCRIPTION OF PROCEDURE: Very limited bedside echo images obtained. Patient with known history of severe amyloid cardiomyopathy. Left ventricular cavity is dilated. Moderate at least LVH. Overall left ventricular systolic function moderately to severely reduced from multiple views. Overall, LVEF could be around 25%, 30% in some of the views. Valvular disease was not evaluated. Probably trivial pericardial effusion appreciated although does not appear to be hemodynamic compromise. [id number]/[facility] #: [id number] MTDD
--- NOTE | 2018-08-25 21:22 | CONS ---
CC: Hospitalist Service; ER physician; Dr. Somers * CARDIOLOGY CONSULT NOTE: DATE OF CONSULT: 08/25/18 - EMERGENCY DEPT HISTORY OF PRESENT ILLNESS: The patient is a 33-year-old male patient who was brought in from custodial with recurrent episodes of symptoms of chest pain and shortness of breath. 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 The patient is not sure if he is compliant with his followups with his oven press tender or his medications. He was recommended to see oncology for consideration for evaluation for his amyloid and consideration for transplant, but apparently he did not follow through. Back in 2013, he was in our emergency department for significant hypertension and cardiomyopathy. His EF then was 10% to 15% and I recommended the patient to be transferred to [facility]. Apparently, the patient ended in [facility] at [place] as I understood. 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 He had been having episodes of symptoms of chest pain for few days, at least 1 hour. He is also having shortness of breath. He has known history of drug abuse, alcoholism, and smoking. According to him, he had no cigarettes, alcohol, or drug abuse for about 7 months now. He has no palpitations, no syncope, no nausea, no vomiting, no hematochezia, no skin rash , no abdominal pain, no orthopnea. No syncope is appreciated. He is in the emergency room and for further evaluation. His oven press tender is Dr. Levi Boss in [place]. PAST SURGICAL HISTORY: No surgical history appreciated. MEDICATIONS: He is supposed to be on: 1. Entresto 49/51. 2. Carvedilol 6.25. 3. Aldactone 25 mg. 4. Digoxin was just added at 0.125 mg. Make sure if the patient is taking all of these medications. FAMILY HISTORY: No family history of premature CAD. SOCIAL HISTORY: He does have history of cigarette smoking and alcoholism and drug abuse, but according to him, he stopped this 7 months ago. REVIEW OF SYSTEMS: His review of all other systems essentially is negative. PHYSICAL EXAM: He was found to have significant blood pressure at about 170/ 110. On exam, he is awake, alert. He had some episodes of chest pain. His blood pressure is elevated at 170/100. He had sublingual nitroglycerin in the emergency room. He is afebrile. He is in sinus rhythm. Head Exam: Normocephalic, atraumatic head. Ears, Nose, and Throat: Essentially benign. Neck: Supple. JVP is not elevated. No carotid bruit. No masses in the neck are appreciated. Chest: Clear to auscultation. No rales, no wheeze, no added sounds appreciated. Heart: Normal S1, S2. No added sounds, no gallops, no rubs. Abdomen: Benign. Positive bowel sounds. Extremities: No edema, no cyanosis, no clubbing. Skin exam is normal. Psych: Normal affect and mood. 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 DIAGNOSTIC STUDIES/LAB DATA: His lab showed the following: White blood cell 7.2, hemoglobin 13.6, hematocrit 40, and platelets 251. His chemistry showed sodium 138, potassium 4.6, BUN 20, creatinine 0.96. AST 72, ALT 220. His troponins were 0.01 and the second one 0.01 and BNP was 100. His chest x-ray, no active cardiopulmonary disease. His EKG, there is normal sinus rhythm, sinus bradycardia, nonspecific T abnormality is appreciated. IMPRESSION: The patient is a 33-year-old male patient with severe cardiomyopathy, amyloidosis, significant hypertension, history of tobacco consumption, drug abuse, alcohol abuse, who presented with recurrent episodes of symptoms of chest pain and shortness of breath. I performed limited bedside echo to evaluate his left ventricular systolic function, which at least is moderately to severely reduced. There is significant left ventricular hypertrophy noticed. The left ventricular cavity is dilated. I had a lengthy talk with the patient about his serious clinical condition and with Dr. Calle and ER physician and a decision was made that this patient will most benefit given his risk complexity of his disease to be evaluated and followed up at a tertiary care center and definitely great emphasis for compliance with medications, compliance with his followup, and also follow up with oncology consult. He is very young and he does have high-risk comorbidities based on his disease. I made this very clear to the patient. Cardiomyopathy medications needs to be taken regularly and hopefully he can be evaluated for transplant if he will become compliant. I answered all his concerns and questions up to his satisfaction. [id number]/[facility] #: [id number] YAEL
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
[2018-08-26 09:57] LABS: Hepatitis B Surface AB Immune (Immune)
[2018-08-26 10:02] LABS: Hepatitis B Surface Antigen Nonreactive (Nonreactive)
[2018-08-26 10:29] LABS: Hepatitis C Antibody High Reactive (Nonreactive)
--- NOTE | 2018-08-26 11:14 | PN ---
Progress Note - Progress Note Date of Service: 08/25/18 Note: Pt. transferred to [facility] yesterday for cardiac issues. He had a hepatic panel draw yesterday secondary to elevated LFTs. He is noted to be positive for Hepatitis C today. [facility] was notified and pt. is still being held in ED. I spoke with charge nurse, Ene Lopez at 1110, at [facility] ER and informed her of positive Hepatitis C which looks like a new dx for pt.
== END | disposition short-term general hospital (02) ==
LOC: ED 11:24
DX: R07.9 Chest pain, unspecified (principal); E85.4 Organ-limited amyloidosis; I43 Cardiomyopathy in diseases classified elsewhere; B19.20 Unspecified viral hepatitis C without hepatic coma; I10 Essential (primary) hypertension
CPT/HCPCS: 36415; 71045; 80053; 80162; 82553; 83605; 83735; 83880; 84484; 85025; 85610; 85730; 86706; 86803; 87340; 93005; 93308; 99284; A9270-GY

== ENCOUNTER 2019-09-18 08:39 | Observation (INO) | payer MEDICAID, OTHER ==
--- NOTE | 2019-09-18 08:53 | ED ---
HPI Chest Pain - HPI Summary HPI Summary: Patient is a 34 y/o M presenting to the ED via EMS for a chief complaint of left anterior chest pain that radiates to the left shoulder that began on the morning of 09/18/19 and woke him from his sleep. Patient reports chills. Patient denies nausea or abdominal pain. Lying down worsens the chest pain. Patient was given aspirin and nitroglycerin for the chest pain by EMS with no relief. He notes similar chest pain in the past. PMHx is significant for CHF and HTN. He takes Carvedilol for his HTN, but did not take his medication on . Patient has a history of drug abuse, last using heroin one month ago and josee on the night of 09/17/19. - History of Current Complaint Time Seen by Provider: 09/18/19 08:47 Hx Obtained From: Patient Onset/Duration: Atraumatic, Still Present Timing: Constant Initial Severity: Moderate Current Severity: Moderate Pain Scale Used: 0-10 Numeric Chest Pain Location: Left Anterior Chest Pain Radiates: Yes Chest Pain Radiates To:: Shoulder - Left Aggravating Factor(s): Recumbent Position Alleviating Factor(s): Nothing Associated Signs and Symptoms: Positive: Chest Pain, Chills. Negative: Nausea, Abdominal Pain - Allergy/Home Medications Allergies/Adverse Reactions: Allergies Allergy/AdvReac Type Severity Reaction Status Date / Time coconut Allergy Swelling Verified 09/18/19 13:45 Of Face,Lips,& Throat codeine Allergy Swelling Verified 09/18/19 13:45 Of Face,Lips,& Throat fentanyl Allergy Anaphylatic Verified 09/18/19 13:45 Shock peanut Allergy Anaphylatic Verified 09/18/19 13:45 Shock shellfish derived Allergy Swelling Verified 09/18/19 13:45 Of Face,Lips,& Throat Home Medications: Home Medications Carvedilol TAB* [Coreg TAB*] 12.5 mg PO BID 09/18/19 [History Confirmed 09/18/19 ] Cyanocobalamin TAB* [Vitamin B12 TAB*] 1,000 mcg PO DAILY 09/18/19 [History Confirmed 09/18/19] Sacubitril/Valsartan 49/51(NF) [Entresto 49/51(NF)] 1 tab PO BID 09/18/19 [ History Confirmed 09/18/19] Torsemide TAB* [Demadex*] 20 mg PO DAILY 09/18/19 [History Confirmed 09/18/19] PMH/Surg Hx/FS Hx/Imm Hx Previously Healthy: Yes Endocrine/Hematology History: Denies: Hx Anticoagulant Therapy, Hx Diabetes, Hx Thyroid Disease Cardiovascular History: Reports: Hx Cardiomegaly, Hx Congestive Heart Failure, Hx Hypertension - stage 2, Other Cardiovascular Problems/Disorders - CARDIOMYOPATHY (amyloidosis) Denies: Hx Pacemaker/ICD, Hx Valvular Heart Disease Respiratory History: Reports: Hx Asthma Denies: Hx Chronic Obstructive Pulmonary Disease (COPD) GI History: Reports: Other GI Disorders - Hepatitis C Denies: Hx Ulcer History: Denies: Hx Dialysis, Hx Renal Disease Sensory History: Denies: Hx Legally Blind, Hx Deafness Opthamlomology History: Denies: Hx Legally Blind EENT History: Denies: Hx Deafness Neurological History: Denies: Hx Dementia, Hx Seizures Psychiatric History: Reports: Hx Substance Abuse - h/o heroine use - Surgical History Surgical History: None Surgery Procedure, Year, and Place: no surg hx - Immunization History Date of Tetanus Vaccine: utd Date of Influenza Vaccine: none Infectious Disease History: No Infectious Disease History: Denies: Hx Clostridium Difficile, Hx Hepatitis, Hx Human Immunodeficiency Virus (HIV), Hx of Known/Suspected MRSA, Hx Shingles, Hx Tuberculosis, Hx Known/ Suspected VRE, Hx Known/Suspected VRSA, History Other Infectious Disease - Family History Known Family History: Positive: Cardiac Disease, Hypertension Negative: Diabetes - Social History Occupation: Unemployed Alcohol Use: None Hx Substance Use: Yes Substance Use Type: Reports: Heroin, Other - "josee" Substance Use Comment - Amount & Last Used: stated that last heroin was 7 months ago Hx Tobacco Use: Yes Smoking Status (MU): Light Every Day Tobacco Smoker Type: Cigarettes Amount Used/How Often: 1/4 PPD Length of Time of Smoking/Using Tobacco: 8+ years Have You Smoked in the Last Year: Yes Review of Systems Positive: Chills Positive: Chest Pain - Left anterior Negative: Abdominal Pain, Nausea Positive: Arthralgia - Left shoulder that radiates from the chest All Other Systems Reviewed And Are Negative: Yes Physical Exam - Summary Physical Exam Summary: Appearance: The patient is well-nourished in no acute distress and in no acute pain. Skin: The skin is warm and dry, and skin color reflects adequate perfusion. HEENT: The head is normocephalic and atraumatic. The pupils are equal and reactive. The conjunctivae are clear and without drainage. Nares are patent and without drainage. Mouth reveals moist mucous membranes, and the throat is without erythema and exudate. The external ears are intact. The ear canals are patent and without drainage. The tympanic membranes are intact. Neck: The neck is supple with full range of motion and non-tender. There are no carotid bruits. There is no neck vein distension. Respiratory: Chest is non-tender. Lungs are clear to auscultation and breath sounds are symmetrical and equal. Cardiovascular: Heart is regular rate and rhythm. There is no murmur or rub auscultated. There is no peripheral edema and pulses are symmetrical and equal. Abdomen: The abdomen is soft and non-tender. There are normal bowel sounds heard in all four quadrants and there is no organomegaly palpated. Musculoskeletal: There is no back tenderness noted. Extremities are non-tender with full range of motion. There is good capillary refill. There is no peripheral edema or calf tenderness elicited. Tenderness in the left anterolateral chest wall superiorly. Neurological: Patient is alert and oriented to person, place and time. The patient has symmetrical motor strength in all four extremities. Cranial nerves are grossly intact. Deep tendon reflexes are symmetrical and equal in all four extremities. Psychiatric: The patient has an appropriate affect and does not exhibit any anxiety or depression. Triage Information Reviewed: Yes Vital Signs Reviewed: Yes Procedures - Sedation Patient Received Moderate/Deep Sedation with Procedure: No Diagnostics - Laboratory Result Diagrams: 09/18/19 09:09 09/18/19 09:09 Lab Statement: Any lab studies that have been ordered have been reviewed, and results considered in the medical decision making process. - Radiology Chest X-ray Radiology Interpretation Completed By: Radiologist Summary of Radiographic Findings: Chest X-ray IMPRESSION: THERE APPEARS BE A NEW HERNIA IN THE RIGHT CARDIOPHRENIC ANGLE. THIS CAN BE FURTHER EVALUATED WITH CT IMAGING. Reviewed by Dr. Sharp. - EKG 08:47 Cardiac Rate: NL - 84 BPM EKG Rhythm: Sinus Rhythm ST Segment: Normal Ectopy: None Summary of EKG Findings: EKG at 08:47 shows normal sinus rhythm with 84 BPM, LVH , non-diagnostic lateral changes consistent with previous EKGs, normal ST, no ectopy, no STEMI. Reviewed and interpreted by Dr. Sharp. Chest Pain Course/Dx - Course Course Of Treatment: Mr. June presented with chest pain and elevated blood pressure. He is on 3 antihypertensives and has not taken them yet today. While we were placing him on a monitor and getting him worked up with labs and EKG he was given his normal morning medications. These did not make an impact on his blood pressure and he was given 20 mg of IV labetalol. He continued to have chest pain and his troponin went from 0.03 to 0.04. I spoke with the hospitalist about further evaluation to get control of his blood pressure as an inpatient. - Diagnoses Provider Diagnoses: Hypertensive emergency - Provider Notifications Discussed Care Of Patient With: Bertha Stallworth - At 14:02, Dr. Bertha Stallworth reviewed the patients case and agrees to admit the patient to [facility] with a diagnosis of hypertensive emergency. Time Discussed With Above Provider: 14:02 Instructed by Provider To: Admit As Inpatient - Critical Care Time Critical Care Time: 30-74 min Discharge ED - Sign-Out/Discharge Documenting (check all that apply): Patient Departure - Admit - Discharge Plan Condition: Stable Disposition: ADMITTED TO [facility] Referrals: Levi Boss MD [Medical Doctor] - - Billing Disposition and Condition Condition: STABLE Disposition: Admitted to [facility] - Attestation Statements Document Initiated by Giovani: Yes Documenting Scribe: Kelly Weiss Provider For Whom Giovani is Documenting (Include Credential): Pete Sharp MD Scribe Attestation: I, Kelly Weiss, scribed for Pete Sharp MD on 09/18/19 at 1614. Scribe Documentation Reviewed: Yes Provider Attestation: The documentation as recorded by the Kelly hayden accurately reflects the service I personally performed and the decisions made by me, Pete Sharp MD Status of Scribe Document: Viewed
[2019-09-18 09:21] LABS: ABS Lymphocytes 2.1 10^3/ul (1.0-4.8); ABS Monocytes 0.6 10^3/ul (0-0.8); ABS Neutrophils 3.5 10^3/ul (1.5-7.7); Eosinophil % 0.5 %; Hematocrit 41 % (42-52); Hemoglobin 14.3 g/dL (14.0-18.0); Lymphocyte % 33.5 %; Mean Corpuscular HGB Conc 35 g/dL (31-36); Mean Corpuscular Hemoglobin 28 pg (27-31); Mean Corpuscular Volume 82 fL (80-94); Mean Platelet Volume 7.3 fL (7.4-10.4); Platelet Count 340 10^3/uL (150-450); Red Blood Count 5.05 10^6 /uL (4.18-5.48); Red Cell Distribution Width 15 % (10-15); White Blood Count 6.2 10^3/uL (3.5-10.8)
[2019-09-18 09:27] LABS: INR 1.15 (0.82-1.09)
[2019-09-18 09:38] LABS: ALT 18 U/L (7-52); AST 20 U/L (13-39); Albumin 4.3 g/dL (3.2-5.2); Albumin/Globulin Ratio 1.1 (1-3); Alkaline Phosphatase 86 U/L (34-104); Anion Gap 10 mmol/L (2-11); BUN/Creatinine Ratio 18.6 (8-20); Blood Urea Nitrogen 19 mg/dL (6-24); CO2 Carbon Dioxide 22 mmol/L (22-32); Calcium 9.2 mg/dL (8.6-10.3); Chloride 104 mmol/L (101-111); EGFR African American 101.8 (>60); EGFR Non-African American 84.1 (>60); Globulin 3.9 g/dL (2-4); Glucose 118 mg/dL (70-100); Potassium 3.4 mmol/L (3.5-5.0); Sodium 136 mmol/L (135-145); Total Protein 8.2 g/dL (6.4-8.9)
[2019-09-18 09:43] LABS: Troponin I 0.03 ng/mL (<0.03)
[2019-09-18 10:14] LABS: HIV 4th Generation Nonreactive (Nonreactive)
[2019-09-18] MEDS ORDERED: Spironolactone TAB* 25 MG PO ONE ×2 (11:18→11:19)
[2019-09-18] MEDS ORDERED: Furosemide TAB* 20 MG PO ONE (11:18)
[2019-09-18] MEDS ORDERED: Carvedilol TAB* 25 MG PO ONE ×2 (11:18→11:19)
[2019-09-18 12:16] LABS: Troponin I 0.04 ng/mL (<0.03)
[2019-09-18] MEDS ORDERED: Labetalol IV* 5 MG/ML 20 ML VIAL IV PUSH ONE (13:16)
[2019-09-18] MEDS ORDERED: Nitro 2% OINT* (Nitroglycerin) 1 INCH/PAK PAK TOPICAL ONE (14:03)
[2019-09-18] MEDS ORDERED: cloNIDine TAB* 0.1 MG PO ONE (14:53)
[2019-09-18] MEDS ORDERED: hydrALAZINE IV* 20 MG/ML VIAL IV SLOW PU ONE (14:53)
[2019-09-18 15:01] LABS: Urine Appearance Clear; Urine Bilirubin Negative (Negative); Urine Blood Negative (Negative); Urine Color Yellow; Urine Glucose 1+(50 mg/dL) (Negative); Urine Ketones Negative (Negative); Urine Nitrite Negative (Negative); Urine Protein Negative (Negative); Urine Specific Gravity 1.017 (1.010-1.030); Urine Urobilinogen Positive (Negative)
[2019-09-18 15:15] LABS: Urine Benzodiazepine Screen None Detected (None Detect); Urine Opiates Screen None Detected (None Detect)
[2019-09-18] MEDS ORDERED: Acetaminophen TAB* 325 MG PO ONE (15:48)
[2019-09-18] MEDS ORDERED: Acetaminophen TAB* 325 MG PO PRN (15:57)
[2019-09-18] MEDS ORDERED: LORazepam TAB(*) 1 MG PO ONE (16:01)
[2019-09-18] MEDS ORDERED: hydrALAZINE IV* 20 MG/ML VIAL IV SLOW PU PRN (16:10)
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
[2019-09-18] MEDS ORDERED: Potassium Chlor TAB* 20 MEQ TAB.ER PO ONE (17:17)
[2019-09-18 19:29] LABS: Troponin I 0.03 ng/mL (<0.03)
[2019-09-18] MEDS ORDERED: Lorazepam PYXIS KEY PRN (19:47)
[2019-09-18] MEDS: cloNIDine TAB* 0.1 MG PO SCH (20:30)
[2019-09-18] MEDS: LORazepam INJ* 2 MG/ML 1 ML VIAL IV PUSH PRN (20:31)
[2019-09-18] MEDS: Sacubitril/Valsartan 49/51(NF) TAB PO SCH (20:34)
[2019-09-18] MEDS ORDERED: Carvedilol TAB* 6.25 MG PO SCH (21:00)
[2019-09-18] MEDS ORDERED: cloNIDine TAB* 0.1 MG PO SCH (21:00)
[2019-09-19 06:04] LABS: ABS Eosinophils 0.1 10^3/ul (0-0.6); ABS Lymphocytes 3.1 10^3/ul (1.0-4.8); ABS Monocytes 0.9 10^3/ul (0-0.8); ABS Neutrophils 4.1 10^3/ul (1.5-7.7); Eosinophil % 1.1 %; Hematocrit 41 % (42-52); Hemoglobin 14.1 g/dL (14.0-18.0); Lymphocyte % 37.4 %; Mean Corpuscular HGB Conc 35 g/dL (31-36); Mean Corpuscular Hemoglobin 28 pg (27-31); Mean Corpuscular Volume 82 fL (80-94); Mean Platelet Volume 7.8 fL (7.4-10.4); Platelet Count 327 10^3/uL (150-450); Red Blood Count 4.96 10^6 /uL (4.18-5.48); Red Cell Distribution Width 15 % (10-15); White Blood Count 8.2 10^3/uL (3.5-10.8)
[2019-09-19 06:44] LABS: Calcium 8.8 mg/dL (8.6-10.3); Magnesium 2.2 mg/dL (1.9-2.7); Potassium 3.7 mmol/L (3.5-5.0)
[2019-09-19 06:50] LABS: BUN/Creatinine Ratio 20.2 (8-20); EGFR African American 99.5 (>60); EGFR Non-African American 82.2 (>60)
--- NOTE | 2019-09-19 07:32 | ECHO ---
*[facility]* [place] [address] Fax #: [phone] Transthoracic Echocardiogram Patient: Eleazar June : 1985 Study Date: 09/18/2019 Age: 34 Gender: M HR: 78 bpm Height: 67 in /170.2 cm BSA: 2.11 m^2 Weight: 219.5 lb /99.8 kg BMI: 34.5 kg/m^2 *[place] Planning Manager: * Deidre Mon RDCS RN *Referring Physician: * Zaynab Thurston *Reading Physician: * Joey Scott MD Indications: Chest Pain, unspecified. History: Congestive heart failure. Cardiomyopathy. Amyloidosis. Substance abuse including heroin. Hepatitis C. Asthma. Risk factors: Current tobacco use. Hypertension. Conclusions Summary: - Left ventricle: The cavity size is normal. Wall thickness is severely increased. There is concentric hypertrophy. Systolic function is normal. There are no regional wall motion abnormalities. The ejection fraction (A4C, 1-plane MOD) is 57%. The ejection fraction (2-plane MOD) is 57%. - Right ventricle: The cavity size is normal. Systolic function is normal. - Left atrium: The atrium is mildly dilated by linear measurements. - Aorta: The aortic root diameter is 4.4 cm. - Aortic root: The aortic root is moderately dilated. - Pulmonary arteries: Systolic pressure cannot be accurately estimated. - No significant valvular abnormallities noted. - There appears to be mild extracardiac extrinsic compression onto the right atrium. Recommendations: Compared to limited study from 08/2018, LVEf was reported 25-30% Study data: Transthoracic echocardiogram. Procedure: Transthoracic echocardiography was performed. Image quality was good. Complete 2D, spectral Doppler, and color flow Doppler. Location: Emergency department. Patient status: Inpatient. Patient room number: ED 15. Rhythm: Normal sinus rhythm. Findings Left ventricle: The cavity size is normal. Wall thickness is severely increased. There is concentric hypertrophy. Systolic function is normal. There are no regional wall motion abnormalities. The tissue Doppler parameters are abnormal. Right ventricle: The cavity size is normal. Systolic function is normal. Left atrium: The atrium is mildly dilated by linear measurements. Right atrium: The atrium is mildly dilated. Mitral valve: The leaflets are mildly thickened. There is chordal systolic anterior motion of the mitral valve. There is no evidence of stenosis. There is mild regurgitation. Aortic valve: The valve is trileaflet. The leaflets are mildly thickened. There is no evidence of stenosis. There is trace to mild regurgitation. Tricuspid valve: The leaflets are normal thickness. There is no evidence of stenosis. There is trace to mild regurgitation. Pulmonic valve: The valve is structurally normal. There is no evidence of stenosis. There is trace to mild regurgitation. Aorta: Aortic root: The aortic root is moderately dilated. Ascending aorta: The ascending aorta is mildly dilated at 4.1 cm. Aortic arch: The aortic arch is not dilated. Pericardium: There is no significant pericardial effusion. Pulmonary arteries: The main pulmonary artery is normal-sized. Systolic pressure cannot be accurately estimated. Systemic veins: Inferior vena cava: The vessel is normal in size. There is (< 50%) respiratory change in the IVC dimension. Measurements Left ventricle Value Ref Right atrium Value Ref ERIC, LAX 4.7 cm 4.2 - 5.8 SI dim, ES (H) 5.4 cm 3.4 - ESD, LAX 3.8 cm 2.5 - 4.0 5.3 FS, LAX (L) 20 % 25 - 43 ML dim, ES, A4C 2.8 cm 2.6 - PW, ED (H) 2.2 cm 0.6 - 1.0 4.4 IVS/PW, ED 0.92 SI dim, ES, A4C 5.0 cm 3.4 - EDV, 1-p A4C 164 ml 69 - 185 5.3 ESV, 1-p A4C 71 ml 22 - 78 SI dim/bsa, ES, 2.3 cm/m^2 1.8 - EF, 1-p A4C 57 % 46 - 74 A4C 3.0 EDV, 2-p (H) 175 ml 62 - 150 ESV, 2-p (H) 75 ml 21 - 61 Aortic valve Value Ref EF, 2-p 57 % 52 - 72 Delvis diam, ED 2.6 cm -------- E', lat delvis, TDI (L) 4.2 cm/sec >=10.0 Peak v, S 1.53 m/sec - ------- E/e', lat delvis, 13 VTI, S 28.4 cm ---- ---- TDI Mean grad, S 6.0 mm Hg -------- E', med delvis, TDI (L) 2.8 cm/sec >=7.0 Peak grad, S 9.0 mm Hg - ------- E/e', med delvis, 20 LVOT/AV, VTI ratio 0.71 ---- ---- TDI E', avg, TDI 3.5 cm/sec Mitral valve Value Ref E/e', avg, TDI (H) 16 <=14 Peak E 0.56 m/sec - ------- Peak A 0.92 m/sec -------- LVOT Value Ref Decel time 137 ms -------- Peak neymar, S 1.15 m/sec Peak E/A ratio 0.6 -------- VTI, S 20.2 cm Peak grad, S 5 mm Hg Pulmonic valve Value Ref Mean grad, S 3 mm Hg Peak v, S 1.14 m/sec -------- Peak grad, S 5.0 mm Hg -------- Ventricular septum Value Ref IVS, ED (H) 2.0 cm 0.6 - 1.0 Aortic root Value Ref Root diam (H) 4.4 cm <3.8 Right ventricle Value Ref ERIC, LAX 3.8 cm Ascending aorta Value Ref ERIC minor ax, 2.6 cm 1.9 - 3.5 AAo AP diam, S 4.1 cm -------- A4C mid AAo AP diam/bsa, S 1.9 cm/m^2 -------- Left atrium Value Ref Aortic arch Value Ref AP dim, ES (H) 4.60 cm 3.00 - Arch diam 2.7 cm -------- 4.00 ML dim, A4C 3.8 cm Decending aorta Value Ref SI dim, A4C 6.2 cm Bryson peak neymar 0.68 m/sec -------- Vol/bsa, ES, 1-p 23 ml/m^2 12 - 37 A4C Inferior vena cava Value Ref Vol/bsa, ES, A/L 26 ml/m^2 16 - 34 Diam 1.3 cm -------- Legend: (L) and (H) marco values outside specified reference range. Prepared and electronically signed by Joey Scott MD 09/19/2019 07:31
[2019-09-19] MEDS: Sacubitril/Valsartan 49/51(NF) TAB PO SCH (07:52)
[2019-09-19] MEDS: cloNIDine TAB* 0.1 MG PO SCH ×2 (08:00→14:09)
[2019-09-19] MEDS: Spironolactone TAB* 25 MG PO SCH (08:00)
[2019-09-19] MEDS ORDERED: Carvedilol TAB* 6.25 MG PO SCH (09:00)
[2019-09-19] MEDS: Valsartan TAB* 40 MG PO SCH ×2 (09:00→19:30)
[2019-09-19] MEDS: Carvedilol TAB* 6.25 MG PO SCH ×2 (09:27→19:30)
--- NOTE | 2019-09-19 09:29 | PN ---
Subjective Date of Service: 09/19/19 Interval History: Found laying in bed this morning, resting. C/o L-sided chest pain, increases significantly with palpation. Better with laying flat or to the R side. States same as pain that he was feeling when he came to the ED but less intense and no radiating pain. Has had frontal headache , throbbing, since yesterday but slightly less intense. Denies any acute visual changes. Has been having diarrhea since yesterday. Denies SOB, abdominal pain, N/V, difficulty urinating, blood in urine, numbness/ tingling. Objective Active Medications: Acetaminophen (Tylenol Tab*) 650 mg PO Q6H PRN PRN Reason: MILD PAIN or TEMP > 100.4 Last Admin: 09/19/19 07:37 Dose: 650 mg Carvedilol (Coreg Tab*) 12.5 mg PO BID [facility] Clonidine HCl (Catapres Tab*) 0.2 mg PO TID [facility] Last Admin: 09/19/19 08:00 Dose: 0.2 mg Hydralazine HCl (Apresoline Iv*) 5 mg IV SLOW PU Q6H PRN PRN Reason: Systolic Bp Greater Than:180 Lorazepam (Ativan Inj*) 0.5 mg IV PUSH Q4H PRN PRN Reason: ANXIETY Last Admin: 09/18/19 20:31 Dose: 0.5 mg Miscellaneous (Ativan Pyxis Sheikh) 1 ea N/A .ATIVAN IV SHEIKH PRN PRN Reason: PYXIS SHEIKH Spironolactone (Aldactone Tab*) 25 mg PO DAILY [facility] Last Admin: 09/19/19 08:00 Dose: 25 mg Valsartan (Diovan Tab*) 40 mg PO BID [facility] Last Admin: 09/19/19 09:00 Dose: 40 mg Vital Signs - 8 hr 09/19/19 09/19/19 09/19/19 03:15 07:15 09:01 Temperature 97.9 F 98.3 F Pulse Rate 84 79 Respiratory 18 20 Rate Blood Pressure 169/101 182/115 180/120 (mmHg) O2 Sat by Pulse 97 100 Oximetry Temp Pulse Resp BP Pulse Ox 97.3 F 82 18 158/89 100 09/19/19 15:15 09/19/19 15:15 09/19/19 15:54 09/19/19 15:15 09/19/19 15:15 Oxygen Devices in Use Now: None Appearance: laying in bed, NAD Eyes: No Scleral Icterus, - - PERRL Ears/Nose/Mouth/Throat: Mucous Membranes Moist Respiratory: Symmetrical Chest Expansion and Respiratory Effort, Clear to Auscultation Cardiovascular: RRR - hyperactive BSX4, abdomen SNT Extremities: No Edema Skin: - - dry and intact Neurological: Alert and Oriented x 3 Nutrition: Taking PO's Result Diagrams: 09/19/19 05:29 09/19/19 05:29 Additional Lab and Data: Abnormal Lab Results 09/18/19 09/19/19 09/19/19 19:02 05:29 05:29 WBC 8.2 RBC 4.96 Hgb 14.1 Hct 41 L MCV 82 MCH 28 MCHC 35 RDW 15 Plt Count 327 MPV 7.8 Neut % (Auto) 49.8 Lymph % (Auto) 37.4 [place] % (Auto) 11.2 Eos % (Auto) 1.1 Baso % (Auto) 0.5 Absolute Neuts (auto) 4.1 Absolute Lymphs (auto) 3.1 Absolute Monos (auto) 0.9 H Absolute Eos (auto) 0.1 Absolute Basos (auto) 0.0 Absolute Nucleated RBC 0.0 Nucleated RBC % 0.0 Sodium 137 Potassium 3.7 Chloride 106 Carbon Dioxide 23 Anion Gap 8 BUN 21 Creatinine 1.04 Est GFR ( Amer) 99.5 Est GFR (Non-Af Amer) 82.2 BUN/Creatinine Ratio 20.2 H Glucose 112 H Calcium 8.8 Magnesium 2.2 Troponin I 0.03 H* Assess/Plan/Problems-Billing Assessment: is a 34yo male with PMHx significant for HTN, CHF in 2014, cardiomyopathy, amyloidosis, hep C. Who presented to the ED on 09/18 with L sided chest pain and increased fatigue. He was noted to be in hypertensive urgency. Responded to various medications given in the ED and was transferred to . - Patient Problems (1) Chest pain Current Visit: Yes Status: Acute Code(s): R07.9 - CHEST PAIN, UNSPECIFIED SNOMED Code(s): 25894786 Comment: Reproducible L-sided chest pain, increases significantly with palpation. Better with laying flat or to the R side. States same as pain that he was feeling when he came in but less intense and no radiating pain. Troponins started in ED, trended up and then back down, likely in relation to demand ischemia from drug use and cardiac workload during hypertensive urgency - continue telemetry monitoring (2) Hypertensive urgency Current Visit: No Status: Acute Priority: High Onset Date: 06/20/14 Code (s): I10 - ESSENTIAL (PRIMARY) HYPERTENSION SNOMED Code(s): 221655036 Comment: BPs normalizing, with medication regimen changes he has not needed PRN hydralazine - continue usual cardiac medications with the exception of entresto as all components are not available, started valsartan - stop clonidine - start amlodipine - observe overnight (3) Polysubstance abuse Current Visit: Yes Status: Acute Code(s): F19.10 - OTHER PSYCHOACTIVE SUBSTANCE ABUSE, UNCOMPLICATED SNOMED Code(s): 928429988 Comment: drug screen positive for cocaine and cannabis, admits to using josee the day prior to ED arrival, considering outpatient drug treatment after discharge - social work/case management developing plan with him for d/c (4) CHF (congestive heart failure) Current Visit: Yes Status: Acute Code(s): I50.9 - HEART FAILURE, UNSPECIFIED SNOMED Code(s): 35572363 Comment: per records dx in 2014, prior echo from 08/2018 showed EF 25-30%. Echo from this admission shows EF 57%, no major valvular abnormalities along with other findings. No signs of decompensation at this time. - acheive BP control prior to d/c - should f/u as outpatient with cardiology (5) Hypokalemia Current Visit: Yes Status: Acute Code(s): E87.6 - HYPOKALEMIA SNOMED Code( s): 65629782 Comment: Hypokalemic on arrival. Has since resolved. Most likely in relation to the diarrhea that he has been having which could very well be in relation to recent drug use. - continue to monitor (6) DVT prophylaxis Current Visit: Yes Status: Acute Code(s): Z29.9 - ENCOUNTER FOR PROPHYLACTIC MEASURES, UNSPECIFIED SNOMED Code(s): 540594270 Comment: encourage ambulation Status and Disposition: Status: improving, stable Disposition: 4S Attending: Maylin Cowart
[2019-09-19] MEDS: LORazepam INJ* 2 MG/ML 1 ML VIAL IV PUSH PRN (14:54)
[2019-09-19] MEDS: amLODIPine TAB* 5 MG PO SCH (15:20)
[2019-09-20 05:38] LABS: Calcium 9.1 mg/dL (8.6-10.3); Magnesium 2.2 mg/dL (1.9-2.7); Potassium 3.8 mmol/L (3.5-5.0)
[2019-09-20 05:44] LABS: EGFR African American 104.1 (>60); EGFR Non-African American 86.1 (>60)
[2019-09-20] MEDS: Carvedilol TAB* 6.25 MG PO SCH (09:52)
[2019-09-20] MEDS: amLODIPine TAB* 5 MG PO SCH (09:52)
[2019-09-20] MEDS: Valsartan TAB* 40 MG PO SCH (09:52)
[2019-09-20] MEDS: Spironolactone TAB* 25 MG PO SCH (09:52)
[2019-09-20] MEDS: LORazepam INJ* 2 MG/ML 1 ML VIAL IV PUSH PRN (09:57)
[2019-09-20] MEDS ORDERED: Nicotine* 2MG (FRUIT FLAVOR) GUM PO PRN (10:58)
[2019-09-20 11:57] VITALS: BP 180/110
--- NOTE | 2019-09-20 23:05 | DS ---
CC: Dr. Armendariz at [facility] * DISCHARGE SUMMARY: DATE OF ADMISSION: 09/18/19 DATE OF DISCHARGE: 09/20/19 ATTENDING PHYSICIAN: Dr. Cowart * (dictated by Kiley Sprague NP). PRIMARY CARE PHYSICIAN: Dr. Armendariz. PRIMARY DIAGNOSES: 1. Hypertensive urgency. 2. Polysubstance abuse. SECONDARY DIAGNOSES: 1. Congestive heart failure. 2. Hepatitis C. 3. Cardiomyopathy. 4. Amyloidosis. 5. Depression. HISTORY OF PRESENT ILLNESS: Mr. June is a 34-year-old male with past medical history significant for hypertension, CHF, IV drug user, who presented to the emergency room with complaints of increased fatigue and left-sided chest pain. He was complaining that he woke up that morning with left-sided chest pain with associated diaphoresis and shortness of breath. He described the pain as burning to his left chest and radiating to the left shoulder and neck. He was rating it 5/10. He stated that it improved with lying on his left side and was worse with lying on his back. He also reported shortness of breath with walking up stairs for the last couple of weeks. Due to these symptoms, the patient called EMS and was brought to the emergency room for further evaluation. The patient admitted in the ER that he had used Shavonne the day prior to coming in and that he has a history of heroin use. His last heroin use was approximately 1 month ago. He also reported daily marijuana use, 2 to 3 bowl packs per day. While in the emergency department, he did have an elevated troponin of 0.03 with a repeat of 0.04, a potassium of 3.4, and significant hypertension with a blood pressure initially of 213/128. Due to those findings, Hospital Medicine was asked to evaluate the patient for admission. Original EKG after arrival showed sinus rhythm with multiple findings for LVH criteria. While in the emergency department, the patient received Lasix 20 mg p.o., carvedilol 12.5 mg p.o., spironolactone 25 mg p.o., labetalol 20 mg IV push, nitroglycerin 2% ointment 1 inch topically to chest, clonidine 0.2 mg p.o., hydralazine 5 mg IV, acetaminophen 975 mg p.o., lorazepam 1 mg p.o. His blood pressure did respond to these medications and he was admitted to [address] [place] [address] telemetry unit. He was continued on his usual medications. Clonidine was discontinued and amlodipine 5 mg p.o. was started on 09/19/19. The patient had decent BP control throughout the day and night of 09/19/19 and suspect artist of 09/20/19. He, however, was noted to have a manual blood pressure 180/110 just shortly before discharge and the patient stated that he was very stressed out because of his ex- . The patient stated that he had not been taking his regular medications prior to coming to the ED because they were not available to him. He stated that he would start taking his regular medications as well as the new prescription for amlodipine. Also stated that he would monitor his blood pressure daily using the blood pressure machine at a nearby drugstore. The patient stated he would not stay another night in the hospital. The patient was deemed safe for discharge. STUDIES: Transthoracic echo. Summary: Left ventricle: The cavity size is normal, wall thickness is severely increased. There is concentric hypertrophy. Systolic function is normal. There are no regional wall motion abnormalities. The ejection fraction is 57%. Right ventricle: The cavity size is normal, systolic function is normal. Left atrium: The atrium is mildly dilated by linear measurements. Aorta: The aortic root diameter is 4.4 cm. Aortic root: The aortic root is moderately dilated. Pulmonary arteries: Systolic pressure cannot be accurately estimated. No significant valvular abnormalities noted. There appears to be mild extracardiac extrinsic compression into the right atrium. Recommendations: Compared to limited study from August 2018, LVEF was reported 25% to 30%. It is noted from the findings that left ventricular systolic function is normal and the tissue Doppler parameters are normal. Right ventricular systolic function is normal and cavity size is normal. The left atrium is mildly dilated. The right atrium is mildly dilated. PERTINENT LABORATORY DATA: From 09/18/19, INR 1.15, potassium 3.4, glucose 118. Troponin 0.03, 0.04, 0.03. The patient has continued to have elevations of glucose. On 09/19/19, glucose was 112 and on 09/20/19, his glucose was 114. Potassium had since normalized. He did receive a potassium supplement. UA showed positive for urobilinogen and 1+ glucose, otherwise unremarkable. Urine toxicology report from 09/18/19 was positive for cocaine and cannabinoids, and HIV 1 and 2 was nonreactive. REVIEW OF SYSTEMS: Constitutional: Denies fevers, chills, visual changes, chest pain, palpitations, shortness of breath, nausea, vomiting, difficulty urinating or blood in urine, headaches, unusual muscle or joint aches, rashes. PHYSICAL EXAMINATION: Constitutional: I found him this morning lying in bed, in no acute distress. Last Vital Signs: Temp 98.3, heart rate 70, respiratory rate 18, O2 sat 96% on room air, blood pressure 180/110. HEENT: PERRL. Mucous membranes moist. Cardiovascular: Heart rate regular. S1, S2 present. No murmurs, rubs, or gallops noted. Extremities: No edema. Respiratory: Lung sounds clear throughout bilaterally. Good air movement. Normal effort. GI: Bowel sounds x4. Abdomen is soft and nontender. Musculoskeletal: Denies any pain with deep palpation to left chest. Skin: Dry and intact. Neuro: Alert and oriented x3. Psych: Responds appropriately. Normal affect. DISCHARGE PLAN: 1. Continue with heart healthy diet, low in sodium, low in sugars and carbohydrates. 2. No equipment necessary for discharge. 3. Continue his usual activity level as tolerated. 4. Hypertensive urgency. The patient has shown positive response to current medication regimen. We will continue his usual medications along with an added daily dose of amlodipine. 5. Polysubstance abuse. Importance of abstaining from recreational drugs spoken about with the patient. He states his plan is to report to [facility] this 09/22/19. Information packet about polysubstance abuse given. 6. Congestive heart failure. It does not appear to be exacerbated at this time. A referral made to Cardiology, the patient to follow up within 1 to 2 weeks. 7. Cardiomyopathy and amyloidosis. Again, the patient can follow up with his PCP and Cardiology. 8. Hep C. I do not have records from current primary care provider. The patient can follow up with PCP in regards to this condition. 9. Depression. No overt evidence of depression at this time. Again, the patient can follow up with PCP about this condition. MEDICATIONS AT DISCHARGE: 1. Amlodipine 10 mg p.o. daily. 2. Carvedilol 12.5 mg p.o. b.i.d. 3. Entresto 49/51 one tab p.o. b.i.d. 4. Spironolactone 25 mg p.o. daily. 5. Torsemide 20 mg p.o. daily p.r.n. for swelling. CONDITION AT DISCHARGE: Stable. DISPOSITION: Home to girlfriend's apartment. TIME SPENT: Approximately 75 minutes was spent on this admission with almost half of that being face to face with the patient for interview, exam, and discussion of discharge plan. This case has been reviewed with my attending physician, Dr. Cwoart and she agrees with this plan. KILEY SPRAGUE NP [id number]/CPS #: [id number] YAEL
== END 2019-09-20 13:00 | disposition home or self-care (01) ==
LOC: ED 08:39 → MEDTELE 15:57
PROVIDERS: ADMIT Internal Medicine; ATTEND Internal Medicine
DX: I16.0 Hypertensive urgency (principal); I11.0 Hypertensive heart disease with heart failure; I50.9 Heart failure, unspecified; F19.10 Other psychoactive substance abuse, uncomplicated; B19.20 Unspecified viral hepatitis C without hepatic coma; R07.9 Chest pain, unspecified; I42.9 Cardiomyopathy, unspecified; E85.9 Amyloidosis, unspecified; E87.6 Hypokalemia; F32.9 Major depressive disorder, single episode, unspecified; F17.210 Nicotine dependence, cigarettes, uncomplicated; F12.90 Cannabis use, unspecified, uncomplicated; Z79.899 Other long term (current) drug therapy; Z88.6 Allergy status to analgesic agent; R94.31 Abnormal electrocardiogram [ECG] [EKG]
CPT/HCPCS: 36415; 71045; 80048; 80053; 80307; 81003; 82088; 83036; 83605; 83735; 84244; 84484; 85025; 85610; 87389; 93005; 93306; 96374; 96375; 96376; 99285; A9270-GY; G0378; G0480; J0360; J2060

== ENCOUNTER 2020-09-01 15:58 | Inpatient (IN) ==
[2020-09-01] MEDS ORDERED: Furosemide 40 mg/4 ml IV VIAL IV ONE (16:05)
[2020-09-01 16:50] LABS: ABS Basophils 0.1 10^3/ul (0-0.2); ABS Eosinophils 0.1 10^3/ul (0-0.6); ABS Lymphocytes 1.9 10^3/ul (1.0-4.8); ABS Monocytes 1.5 10^3/ul (0-0.8); ABS Neutrophils 18.5 10^3/ul (1.5-7.7); Eosinophil % 0.3 %; Hematocrit 35 % (42-52); Hemoglobin 11.7 g/dL (14.0-18.0); Lymphocyte % 8.7 %; Mean Corpuscular HGB Conc 33 g/dL (31-36); Mean Corpuscular Hemoglobin 28 pg (27-31); Mean Corpuscular Volume 84 fL (80-94); Mean Platelet Volume 8.5 fL (7.4-10.4); Nucleated Red Blood Cells % 0.1; Platelet Count 377 10^3/uL (150-450); Red Blood Count 4.21 10^6 /uL (4.18-5.48); Red Cell Distribution Width 16 % (10-15); White Blood Count 22.1 10^3/uL (3.5-10.8)
[2020-09-01] MEDS ORDERED: cefTRIAXone 2 GM ADDV.VIAL 2 GM in NS 0.9% 100 ml BAG 100 ML IVPB ONE (16:54)
[2020-09-01] MEDS ORDERED: Azithromycin 500 mg/250 ml NS 500 MG/250 ML BAG IVPB ONE (16:54)
[2020-09-01 17:07] LABS: Albumin 2.9 g/dL (3.2-5.2); Albumin/Globulin Ratio 0.9 (1-3); Alkaline Phosphatase 133 U/L (34-104); BUN/Creatinine Ratio 26.4 (8-20); Blood Urea Nitrogen 70 mg/dL (6-24); CO2 Carbon Dioxide 16 mmol/L (22-32); Calcium 8.1 mg/dL (8.6-10.3); Chloride 97 mmol/L (101-111); EGFR African American 33.6 (>60); EGFR Non-African American 27.8 (>60); Globulin 3.3 g/dL (2-4); Glucose 104 mg/dL (70-100); Sodium 130 mmol/L (135-145); Total Protein 6.2 g/dL (6.4-8.9)
[2020-09-01 17:08] LABS: Anion Gap 17 mmol/L (2-11); Potassium 5.5 mmol/L (3.5-5.0)
[2020-09-01 17:14] LABS: Troponin I 6.27 ng/mL (<0.03)
[2020-09-01 17:36] LABS: ALT 1224 U/L (7-52); AST 1974 U/L (13-39)
[2020-09-01 19:25] LABS: Magnesium 2.5 mg/dL (1.9-2.7)
[2020-09-01 19:30] LABS: Creatine Kinase 1009 U/L (10-223); Phosphorus 6.8 mg/dL (2.5-5.0)
[2020-09-01 20:08] LABS: Urine Appearance Cloudy; Urine Bilirubin Negative (Negative); Urine Blood 2+ (Negative); Urine Color Yellow; Urine Glucose Negative (Negative); Urine Ketones Negative (Negative); Urine Nitrite Negative (Negative); Urine Protein 2+(100 mg/dL) (Negative); Urine Specific Gravity 1.009 (1.010-1.030); Urine Urobilinogen Negative (Negative)
[2020-09-01 20:12] LABS: Urine Bacteria Absent (Absent); Urine Red Blood Cell Trace(0-2/hpf) (Absent); Urine Squamous Epithelial Cell Present (Absent); Urine White Blood Cell Trace(0-5/hpf) (Absent)
[2020-09-01] MEDS ORDERED: Lorazepam PYXIS KEY PRN ×2 (20:21→20:23)
[2020-09-01] MEDS ORDERED: LORazepam 2 mg VIAL 1 ml IV PUSH ONE (20:23)
[2020-09-01] MEDS ORDERED: Lorazepam PYXIS KEY ONE (20:23)
[2020-09-01] MEDS ORDERED: LORazepam 2 mg VIAL 1 ml ONE (20:24)
[2020-09-01] MEDS ORDERED: cefTRIAXone 1 gm/50 mL NS BAG 1 GM/50 ML BAG IVPB SCH (20:30)
[2020-09-01] MEDS: Azithromycin 500 mg/250 ml NS 500 MG/250 ML BAG IVPB SCH (20:48)
[2020-09-01] MEDS: Heparin 5000 UNITS/ML 1 mL VIAL SUBCUT SCH (20:53)
[2020-09-01] MEDS: Dexamethasone IV 4 MG/ML VIAL 1 ml VIAL IV SLOW PU SCH (20:53)
[2020-09-01 21:04] LABS: Troponin I 5.33 ng/mL (<0.03)
[2020-09-01 23:47] LABS: Troponin I 4.52 ng/mL (<0.03)
[2020-09-02] MEDS ORDERED: Metoprolol Tartrate 5 mg VIAL 5 ml VIAL (1 mg/ml) ONE (00:47)
[2020-09-02] MEDS ORDERED: Metoprolol Tartrate 5 mg VIAL 5 ml VIAL (1 mg/ml) IV ONE (00:47)
[2020-09-02 04:40] LABS: Hematocrit 36 % (42-52); Hemoglobin 11.4 g/dL (14.0-18.0); Red Blood Count 4.27 10^6 /uL (4.18-5.48); White Blood Count 15.3 10^3/uL (3.5-10.8)
[2020-09-02 04:41] LABS: Mean Corpuscular HGB Conc 32 g/dL (31-36); Mean Corpuscular Hemoglobin 27 pg (27-31); Mean Corpuscular Volume 84 fL (80-94); Mean Platelet Volume 8.2 fL (7.4-10.4); Platelet Count 310 10^3/uL (150-450); Red Cell Distribution Width 16 % (10-15)
[2020-09-02 04:46] LABS: INR 1.92 (0.82-1.09)
[2020-09-02 09:27] LABS: Albumin 2.6 g/dL (3.2-5.2); Albumin/Globulin Ratio 0.8 (1-3); BUN/Creatinine Ratio 33.3 (8-20); Calcium 7.6 mg/dL (8.6-10.3); EGFR African American 41.2 (>60); EGFR Non-African American 34.1 (>60); Globulin 3.1 g/dL (2-4); Magnesium 2.4 mg/dL (1.9-2.7); Phosphorus 6.1 mg/dL (2.5-5.0); Potassium 5.3 mmol/L (3.5-5.0); Total Bilirubin 0.6 mg/dL (0.2-1.0); Total Protein 5.7 g/dL (6.4-8.9)
[2020-09-02] MEDS: Buprenorp/Nalox 8-2 MG FILM SL FILM SCH ×2 (09:30→13:00)
[2020-09-02] MEDS: Heparin 5000 UNITS/ML 1 mL VIAL SUBCUT SCH (09:31)
[2020-09-02] MEDS: LORazepam 2 mg VIAL 1 ml IV PUSH PRN ×2 (09:56→22:35)
[2020-09-02] MEDS ORDERED: Furosemide 100 mg/10 ml IV VIAL IV ONE (11:00)
[2020-09-02 13:03] LABS: Hepatitis B Surface Antigen Nonreactive (Nonreactive)
[2020-09-02 13:08] LABS: Hepatitis A Ab IgM Negative (Negative)
[2020-09-02 13:09] LABS: Hepatitis B Core IgM Nonreactive (Nonreactive)
[2020-09-02 13:56] LABS: Hepatitis C Antibody Reactive (Negative)
[2020-09-02 15:25] LABS: BUN/Creatinine Ratio 34.5 (8-20); Calcium 7.4 mg/dL (8.6-10.3); EGFR African American 53.6 (>60); EGFR Non-African American 44.3 (>60); Potassium 4.9 mmol/L (3.5-5.0)
[2020-09-02] MEDS ORDERED: Iodixanol (CONTRAST) 320 MG/ML 100 ML SDV IV ONE (15:26)
[2020-09-02] MEDS ORDERED: ALTEPLASE IV ONE ×4 (15:31→16:00)
[2020-09-02] MEDS ORDERED: Alteplase (100 mg Vial) 100 mg VIAL ONE (15:31)
[2020-09-02] MEDS ORDERED: Acetylcysteine 600mgCAP(RENAL) PO ONE (16:19)
[2020-09-02] MEDS: Pantoprazole VIAL 40 MG VIAL IV SCH (20:33)
[2020-09-02] MEDS: Dexamethasone IV 4 MG/ML VIAL 1 ml VIAL IV SLOW PU SCH (20:33)
[2020-09-02] MEDS ORDERED: Acetylcysteine 600mgCAP(RENAL) PO SCH (21:00)
[2020-09-02] MEDS: cefTRIAXone 1 gm/50 mL NS BAG 1 GM/50 ML BAG IVPB SCH (21:19)
[2020-09-02] MEDS: Azithromycin 500 mg/250 ml NS 500 MG/250 ML BAG IVPB SCH (21:56)
[2020-09-02 22:41] LABS: Hematocrit 40 % (42-52); Hemoglobin 12.7 g/dL (14.0-18.0); Mean Corpuscular HGB Conc 32 g/dL (31-36); Mean Corpuscular Hemoglobin 27 pg (27-31); Mean Corpuscular Volume 83 fL (80-94); Mean Platelet Volume 8.2 fL (7.4-10.4); Platelet Count 348 10^3/uL (150-450); Red Blood Count 4.78 10^6 /uL (4.18-5.48); Red Cell Distribution Width 16 % (10-15); White Blood Count 28.1 10^3/uL (3.5-10.8)
[2020-09-02 23:00] LABS: ABS Basophils 0.1 10^3/ul (0-0.2); ABS Lymphocytes 0.6 10^3/ul (1.0-4.8); ABS Neutrophils 26.3 10^3/ul (1.5-7.7); ABS Nucleated RBC 0.1 10^3/ul; Lymphocyte % 2.3 %; Nucleated Red Blood Cells % 0.2
[2020-09-02 23:04] LABS: BUN/Creatinine Ratio 38.6 (8-20); EGFR African American 75.1 (>60); EGFR Non-African American 62.1 (>60); Potassium 4.3 mmol/L (3.5-5.0)
[2020-09-02 23:44] LABS: Urine Benzodiazepine Screen None Detected (None Detect); Urine Cannabinoids Screen None Detected (None Detect); Urine Opiates Screen None Detected (None Detect)
[2020-09-03] MEDS: Acetylcysteine 600mgCAP(RENAL) PO SCH ×2 (09:29→20:24)
[2020-09-03] MEDS: LORazepam 2 mg VIAL 1 ml IV PUSH PRN ×2 (09:34→20:32)
[2020-09-03] MEDS: Buprenorp/Nalox 8-2 MG FILM SL FILM SCH (09:36)
[2020-09-03 09:51] LABS: Hematocrit 43 % (42-52); Hemoglobin 13.7 g/dL (14.0-18.0); Mean Corpuscular HGB Conc 32 g/dL (31-36); Mean Corpuscular Hemoglobin 27 pg (27-31); Mean Corpuscular Volume 83 fL (80-94); Mean Platelet Volume 8.4 fL (7.4-10.4); Platelet Count 373 10^3/uL (150-450); Red Blood Count 5.14 10^6 /uL (4.18-5.48); Red Cell Distribution Width 15 % (10-15); White Blood Count 24.5 10^3/uL (3.5-10.8)
[2020-09-03 10:14] LABS: Albumin 2.4 g/dL (3.2-5.2); Albumin/Globulin Ratio 0.8 (1-3); Calcium 7.8 mg/dL (8.6-10.3); EGFR African American 97.8 (>60); EGFR Non-African American 80.9 (>60); Globulin 3.2 g/dL (2-4); Potassium 4.6 mmol/L (3.5-5.0); Total Bilirubin 0.7 mg/dL (0.2-1.0); Total Protein 5.6 g/dL (6.4-8.9)
[2020-09-03] MEDS ORDERED: Furosemide 20 mg/2 ml IV VIAL IV ONE (11:58)
[2020-09-03] MEDS ORDERED: Succinylcholine 200 mg VIAL 20 mg/ml 10 ml VIAL (200 mg) ONE (14:30)
[2020-09-03] MEDS ORDERED: fentaNYL 250 mcg/5 ml 50 MCG/ML 5 ml VIAL (250 MCG) ONE (14:39)
[2020-09-03] MEDS ORDERED: Lorazepam PYXIS KEY ONE (16:54)
[2020-09-03] MEDS ORDERED: LORazepam 2 mg VIAL 1 ml ONE (16:55)
[2020-09-03] MEDS: Pantoprazole VIAL 40 MG VIAL IV SCH (17:02)
[2020-09-03] MEDS: Dexamethasone IV 4 MG/ML VIAL 1 ml VIAL IV SLOW PU SCH (20:23)
[2020-09-03] MEDS: Azithromycin 500 mg/250 ml NS 500 MG/250 ML BAG IVPB SCH (20:24)
[2020-09-03] MEDS: cefTRIAXone 1 gm/50 mL NS BAG 1 GM/50 ML BAG IVPB SCH (20:24)
[2020-09-04] MEDS ORDERED: LORazepam 2 mg VIAL 1 ml IV PUSH ONE ×4 (00:23→12:06)
[2020-09-04] MEDS ORDERED: Lorazepam PYXIS KEY PRN ×4 (00:23→12:05)
[2020-09-04] MEDS ORDERED: Lidocaine 2% JELLY 6 ML TOPICAL ONE (02:04)
[2020-09-04] MEDS ORDERED: Furosemide 20 mg/2 ml IV VIAL ONE (02:43)
[2020-09-04] MEDS ORDERED: Furosemide 40 mg/4 ml IV VIAL IV SLOW PU ONE (02:45)
[2020-09-04] MEDS ORDERED: Enoxaparin 100 MG/ML SYR SUBCUT SCH (03:00)
[2020-09-04] MEDS ORDERED: Buprenorp/Nalox 8-2 MG FILM SL FILM ONE (03:25)
[2020-09-04 04:04] LABS: Hematocrit 38 % (42-52); Hemoglobin 12.4 g/dL (14.0-18.0); Mean Corpuscular HGB Conc 33 g/dL (31-36); Mean Corpuscular Hemoglobin 28 pg (27-31); Mean Corpuscular Volume 85 fL (80-94); Mean Platelet Volume 8.5 fL (7.4-10.4); Platelet Count 272 10^3/uL (150-450); Red Blood Count 4.47 10^6 /uL (4.18-5.48); Red Cell Distribution Width 16 % (10-15); White Blood Count 20.2 10^3/uL (3.5-10.8)
[2020-09-04 04:10] LABS: Urine Appearance Cloudy; Urine Bilirubin Negative (Negative); Urine Blood Negative (Negative); Urine Color Yellow; Urine Glucose Negative (Negative); Urine Ketones Negative (Negative); Urine Nitrite Negative (Negative); Urine Protein Negative (Negative); Urine Specific Gravity 1.023 (1.010-1.030); Urine Urobilinogen Negative (Negative)
[2020-09-04 04:14] LABS: Albumin 2.4 g/dL (3.2-5.2); Albumin/Globulin Ratio 0.8 (1-3); Alkaline Phosphatase 116 U/L (34-104); BUN/Creatinine Ratio 35.4 (8-20); Blood Urea Nitrogen 35 mg/dL (6-24); CO2 Carbon Dioxide 29 mmol/L (22-32); Chloride 102 mmol/L (101-111); EGFR African American 104.7 (>60); EGFR Non-African American 86.5 (>60); Glucose 124 mg/dL (70-100); Phosphorus 3.2 mg/dL (2.5-5.0); Sodium 135 mmol/L (135-145); Total Protein 5.4 g/dL (6.4-8.9)
[2020-09-04 04:35] LABS: ALT 527 U/L (7-52)
[2020-09-04] MEDS: LORazepam 2 mg VIAL 1 ml IV PUSH PRN ×2 (04:41)
[2020-09-04 04:51] LABS: Anion Gap 4 mmol/L (2-11)
[2020-09-04] MEDS ORDERED: Haloperidol 5 mg/ml SDV IV/IM 5 MG/ML AMP ONE (05:12)
[2020-09-04] MEDS ORDERED: Haloperidol 5 mg/ml SDV IV/IM 5 MG/ML AMP IV SLOW PU ONE (05:13)
[2020-09-04] MEDS ORDERED: Midazolam 2 mg/2 ml VIAL 1 mg/ml 2 ml VIAL (2 mg) IV SLOW PU PRN (05:43)
[2020-09-04] MEDS ORDERED: Midazolam 5 mg/5 ml VIAL 1 mg/ml 5 ml VIAL (5 mg) IV SLOW PU PRN (05:48)
[2020-09-04] MEDS ORDERED: Midazolam 2 mg/2 ml VIAL 1 mg/ml 2 ml VIAL (2 mg) IV SLOW PU ONE (05:51)
[2020-09-04] MEDS ORDERED: Morphine PCA ADULT 5 MG/ML 30 ML PCA SCH (07:45)
[2020-09-04] MEDS ORDERED: LORazepam VIAL (for drip) 100 MG in D5W 50 ml BAG 50 ML IV SCH (08:00)
[2020-09-04] MEDS: HYDROmorphone 1 MG/1 ML SYRINGE IV SLOW PU PRN ×2 (08:06→09:49)
[2020-09-04] MEDS ORDERED: Buprenorp/Nalox 8-2 MG FILM SL FILM SCH ×2 (09:00)
[2020-09-04] MEDS ORDERED: Morphine 10 MG/ML VIAL (1 ml) IV ONE (10:00)
[2020-09-04] MEDS ORDERED: Lorazepam PYXIS KEY ONE (10:50)
[2020-09-04] MEDS ORDERED: LORazepam 2 mg VIAL 1 ml ONE ×2 (10:50→11:27)
[2020-09-04] MEDS: LORazepam 2 mg VIAL 1 ml IV PUSH ONE ×2 (10:52→11:35)
[2020-09-04] MEDS ORDERED: Morphine 10 MG/ML VIAL (1 ml) ONE ×2 (11:24→12:01)
[2020-09-04] MEDS: Morphine 10 MG/ML VIAL (1 ml) IV ONE ×2 (12:08→14:00)
[2020-09-04 12:47] VITALS: BP 131/94
== END 2020-09-04 19:29 | disposition expired | DRG 137 ==
LOC: ED 15:58 → ICU 17:42
PROVIDERS: ADMIT Internal Medicine Critical Care Medicine; ATTEND Internal Medicine Interventional Cardiology